=== PATIENT | female | born 1945 | race African-American/Black ===

== ENCOUNTER 2017-10-25 09:08 | Inpatient (IN) | payer OTHER ==
--- NOTE | 2017-10-25 07:53 | HP ---
Satellite [facility] - Chief Complaint Chief Complaint: left knee pain - Past Medical History Allergies/Adverse Reactions: Allergies Allergy/AdvReac Type Severity Reaction Status Date / Time No Known Allergies Allergy Verified 10/13/17 18:02 - Current Medications Current Medications: Home Medications Medication Instructions Recorded Bimatoprost [Lumigan] 1 drop OU BID 10/13/17 Brinzolamide/Brimonidine Tart 8 ml OD DAILY 10/13/17 [Simbrinza 1%-0.2% Eye Drops] Calcium Acetate [Phoslo -] 667 mg PO TIDCM 10/13/17 Cinacalcet HCl [Sensipar] 60 mg PO DAILY 10/13/17 Levothyroxine [Synthroid -] 50 mcg PO DAILY 10/13/17 Metoprolol Succinate [Toprol Xl] 50 mg PO DAILY 10/13/17 Oxycodone HCl/Acetaminophen 1 each PO DAILY 10/13/17 [Oxycodone-Acetaminophen 5-325] Paroxetine HCl [Paxil -] 20 mg PO DAILY 10/13/17 Simvastatin [Zocor -] 40 mg PO HS 10/13/17 Sitagliptin Phosphate [Januvia] 25 mg PO DAILY 10/13/17 Telmisartan [Micardis] 40 mg PO DAILY 10/13/17 Satellite Physical Exam - Physical Examination General Appearance: Well Nourished, Well Developed, Alert & Oriented x3 ENT: Clear Lung: Normal air movement Heart: Regular rate & rhythm Extremities: Other (left knee- + swelling, + ttp, decr rom, nvi xrays show grade 4 tricompartmental djd) Neurological: Intact, Alert, Oriented Satellite Impression/Plan - Impression/Plan Impression: left knee djd Operative Procedure: left rodney tkr Date to be Performed: 10/25/17
[2017-10-25] MEDS ORDERED: CELECOXIB 200 MG CAPSULE PO ONE (09:27)
[2017-10-25] MEDS ORDERED: GABAPENTIN 300 MG CAPSULE (FP) PO ONE (09:27)
[2017-10-25] MEDS ORDERED: oxyCODONE HCL 10 MG SUSTAINED ACTING TABLET PO ONE (09:27)
[2017-10-25] MEDS ORDERED: CEFAZOLIN 1 GM/D5W 1 GM/50 ML BAG IVPB ONE (09:27)
[2017-10-25] MEDS ORDERED: TRANEXAMIC ACID 1000 MG/10 ML VIAL IVPUSH ONE (09:27)
[2017-10-25] MEDS ORDERED: PROPOFOL 20 ML ONE ×2 (10:07→11:34)
[2017-10-25] MEDS ORDERED: VANCOMYCIN 1,000 MG VIAL (RESTRICTED TO ID ONLY) ONE (10:09)
[2017-10-25] MEDS ORDERED: ceFAZolin SODIUM 1 GM VIAL ONE (10:09)
[2017-10-25] MEDS ORDERED: BUPIVACAINE LIPOSOME/PF (EXPAREL) 266 MG/20 ML VIAL ONE (10:24)
[2017-10-25] MEDS ORDERED: MIDAZOLAM HCL 2 MG/2 ML SINGLE DOSE VIAL ONE (10:24)
[2017-10-25] MEDS ORDERED: DEXAMETHASONE SOD PHOSPHATE/PF 10 MG/ML SDV ONE (10:24)
[2017-10-25] MEDS ORDERED: SODIUM CHLORIDE 0.9% P/F 10 ML VIAL IJ ONE (10:25)
[2017-10-25] MEDS ORDERED: BUPIVACAINE HCL/PF (5 MG/ML) 30 ML VIAL IJ ONE (10:25)
[2017-10-25] MEDS ORDERED: BUPIVACAINE HCL/PF 2.5 MG/ML - 30 ML VIAL IJ ONE (10:25)
[2017-10-25] MEDS ORDERED: LIDOCAINE HCL/PF 2% SDV 5ML VIAL ONE ×2 (11:13→11:38)
[2017-10-25] MEDS ORDERED: SUCCINYLCHOLINE CHLORIDE 200 MG/10 ML VIAL ONE (11:34)
[2017-10-25] MEDS ORDERED: BUPIVACAINE HCL/PF 0.5% (5MG/ML) 10 ML VIAL ONE (11:37)
[2017-10-25] MEDS ORDERED: ROCURONIUM BROMIDE 50 MG/5 ML VIAL ONE (11:49)
[2017-10-25] MEDS ORDERED: ePHEDrine SULFATE 50 MG/1 ML AMPULE ONE ×2 (12:03→13:26)
[2017-10-25] MEDS ORDERED: VANCOMYCIN 1,000 MG VIAL (RESTRICTED TO ID ONLY) IVPB ONE (12:43)
[2017-10-25] MEDS ORDERED: NEOSTIGMINE METHYLSULFATE 0.5 MG/ML - 10 ML MDV ONE (13:15)
[2017-10-25] MEDS ORDERED: GLYCOPYRROLATE 0.2 MG/1 ML VIAL ONE (13:16)
[2017-10-25] MEDS ORDERED: MAG HYDROX/AL HYDROX/SIMETH 30 ML UNIT-DOSE CUP PO PRN (13:24)
[2017-10-25] MEDS ORDERED: MAGNESIUM HYDROX 2400MG/30ML ORAL SUSPENSION 30 ML CUP PO PRN (13:24)
[2017-10-25] MEDS ORDERED: ONDANSETRON 4 MG/2 ML VIAL IVPUSH PRN ×2 (13:24→13:37)
--- NOTE | 2017-10-25 13:27 | OP ---
Operative Note - Note: Operative Date: 10/25/17 (roni) Pre-Operative Diagnosis: left knee djd Operation: left rodney tkr Post-Operative Diagnosis: Same as Pre-op Surgeon: Alex Young Judicial Reporter: Willian Cardona Anesthesiologist/WET PAN OPERATOR: Benigno Gay Anesthesia: General, Local Specimens Removed: bone fragments Estimated Blood Loss (mls): 100 Operative Report Dictated: Yes
[2017-10-25] MEDS ORDERED: LACTATED RINGERS SOLUTION 1,000 ML IV SCH (13:30)
[2017-10-25] MEDS ORDERED: ACETAMINOPHEN 325 MG TABLET (FP) PO SCH (13:45)
[2017-10-25] MEDS ORDERED: SODIUM CHLORIDE 0.9% 500 ML INFUS.BAG IV ONE (13:45)
--- NOTE | 2017-10-25 13:59 | SPEC ---
DATE OF OPERATION: 10/25/2017 PREOPERATIVE DIAGNOSIS: Degenerative joint disease, left knee. POSTOPERATIVE DIAGNOSIS: Degenerative joint disease, left knee. PROCEDURE: Left total knee replacement with robotic-assisted navigation (Makoplasty). SURGICAL ATTENDING: Alex Young M.D. COUNTY MANAGER: Josey Gardiner ANESTHESIA: Regional and general. CLOSURE: A cemented Triathlon knee system with a 3 femur, 4 tibia, 11 polyethylene, a 32 patella, number 1 Vicryl fascia, 0 and 2-0 subcutaneous, 3-0 Monocryl subcuticular with skin glue for skin, 4-0 undyed Vicryl for pin sites. ESTIMATED BLOOD LOSS: Less than 100 mL. COMPLICATIONS: None. CONDITION: To recovery room in stable condition. DESCRIPTION OF OPERATIVE PROCEDURE: Patient was taken to the operating room on October 25, 2017. Regional and general anesthesia was administered by the anesthesiologist. IV Kefzol and TXA were administered by the anesthesiologist. Well-padded pneumatic tourniquet was placed on the proximal thigh. The left lower extremity was prepped and draped in the usual sterile fashion. The leg was exsanguinated with an Esmarch bandage, and tourniquet was inflated to 275 mmHg. A 12 to 15-cm longitudinal midline incision was incised while centered over the patella. The dissection was carried down to the level of the extensor mechanism with sufficient flaps made to adequately perform the procedure. A medial parapatellar arthrotomy was then performed. We made a cuff of tissue on the patella for later closure. The patella was inverted, the knee was flexed up. The fat pad was excised. The subperiosteal dissection was on the anteromedial proximal tibia around towards the direction of the MCL. The ACL and the PCL were transected and debrided. The meniscal remnants of the medial and lateral meniscus were debrided and removed. This allowed the knee to be able to "be brought forward." The checkpoints were malleted into the tibia and into the femur. Two threaded pins were drilled anteroposteriorly proximal to the knee through the previous incision, through the anterior cortex, then just engaging the posterior cortex. To these pins was assembled the femoral navigation array. One handbreadth below the tibial tubercle, 2 stab incisions were used to drill 2 threaded pins in parallel fashion into the tibia, again through the anterior cortex and just engaging the posterior cortex. To these pins was fastened the tibial arrays. The knee was then registered with the navigation device with center of rotation of the hip, medial and lateral malleoli, both checkpoints, and multiple points on both the femur and the tibia to ensure excellent registration. The navigation device was directed off the "top of the bubbles" on both the femur and the tibia. The navigation passed within less than 0.5 mm to plan. The knee was then thoroughly inspected to remove all osteophytes both medially, laterally, and on the femur and the tibia, and whatever osteophytes were available for dissection. The knee was then taken to extension and to flexion, and stressed in both varus and valgus to assess flexion gaps. The virtual position of the components on the navigation device were then manipulated to optimize the position and to ensure equal gaps in both flexion and extension, and both medially and laterally. The robot was then brought into the field and was registered. The cuts were then made both on the femur and on the tibia as to plan. All osteophytes posteriorly were then removed as well. The gaps were then measured again in flexion and extension to be equal in both flexion and extension and medial and laterally. The femoral notch was then made, as we were doing a posterior stabilizing component, with the appropriate sized box. Trial reduction of the femur achieved excellent [id number] fit. A tibial baseplate of appropriate polyethylene thickness was "floated in the knee." It was ensured to be in the excellent position by navigation devices and was pinned in place. The knee was taken through a range of motion, and found to have excellent stability throughout flexion and extension. The patella was calibrated for thickness and osteotomized down to the appropriate level. The appropriate lollipop was used to drill the lug holes in the patella and the trial button was applied. The knee was taken through a range of motion and found to have excellent tracking of the patella, and patella from full extension to full flexion. Trial components were removed, the keel was punched and drilled, and a sclerotic bone on the tibia was drilled to help with cement interdigitation. The knee was thoroughly irrigated with the pulse antibiotic senior game developer. The real components were then cemented in using monitored arrangement cement techniques with antibiotic cement, and pressurization and extension. After the cement was hardened, the knee was thoroughly inspected to remove any extra cement. The real polyethylene component was then clipped into place. Range of motion, stability, and tracking were as described earlier. The checkpoints and the pins were removed. The knee was thoroughly irrigated with antibiotic irrigation. Vancomycin powder was placed into the knee for antibiotic prophylaxis. The medial parapatellar arthrotomy was then closed using number 1 Vicryl interrupted suture. After closure of the deep layer, the knee was taken through a range of motion, and found to have excellent stability of the patella with no dislocation and no undue tension on the repair. The subcutaneous was pulse antibiotic irrigated, and was then closed with 2-0 Vicryl, 3-0 Monocryl subcuticular with the skin glue for the skin. The distal tibial pin site was irrigated thoroughly as well and then closed with 4-0 undyed Vicryl. A sterile Aquacel dressing was applied, followed by a Stewart dressing. Tourniquet was deflated. Total tourniquet time was approximately 75 minutes. No complications. Patient was awakened from anesthesia and transferred to recovery room in stable condition. Postoperative x-rays revealed excellent position of the components. Tino [id number]
[2017-10-25] MEDS: oxyCODONE HCL 5 MG TABLET PO PRN ×2 (14:30→18:39)
[2017-10-25] MEDS ORDERED: oxyCODONE HCL 5 MG TABLET ONE (14:32)
[2017-10-25] MEDS: INSULIN SLIDING SCALE (NOVOLOG) 1 VIAL SQ SCH (18:36)
[2017-10-25] MEDS: CEFAZOLIN 2 GM/D5W 2 GM/50 ML ML IVPB SCH (20:47)
[2017-10-25] MEDS: ATORVASTATIN CA 20 MG TABLET (FP) PO SCH (21:47)
[2017-10-25] MEDS: SENNOSIDES/DOCUSATE COMBO (SENNA PLUS) TABLET (UD) PO SCH (21:47)
[2017-10-25] MEDS: oxyCODONE HCL 10 MG SUSTAINED ACTING TABLET PO SCH (21:47)
[2017-10-25] MEDS ORDERED: PATIENT'S OWN MEDICATION (NON-FORMULARY) (Bimatoprost [Lumigan] 1 DROP) OU SCH (22:00)
[2017-10-26] MEDS: CEFAZOLIN 2 GM/D5W 2 GM/50 ML ML IVPB SCH (04:00)
[2017-10-26] MEDS: ACETAMINOPHEN 325 MG TABLET (FP) PO SCH ×4 (04:07→20:54)
[2017-10-26] MEDS: LEVOTHYROXINE NA 50 MCG TABLET (FP) PO SCH (06:23)
--- NOTE | 2017-10-26 09:36 | PN ---
Progress Note (short form) - Note Progress Note: Ortho Pt seen and examined s/p left rodney tkr pod #1- hypotensive Selected Entries 10/26/ 06:00 Temperature 97.9 F Respiratory 18 Rate Blood Pressure 89/61 dressing c/d/i, calf soft, nt rom 0-40, nvi cbc pending a/p incr fluids hold pain meds recheck BP PT dvt ppx d/c planning
[2017-10-26] MEDS: MULTIVITAMINS (DAILY MVI) TABLET (FP) PO SCH (09:54)
[2017-10-26] MEDS: SENNOSIDES/DOCUSATE COMBO (SENNA PLUS) TABLET (UD) PO SCH ×2 (09:54→21:38)
[2017-10-26] MEDS: PARoxetine HCL 20 MG TABLET (FP) PO SCH (09:55)
[2017-10-26] MEDS: oxyCODONE HCL 10 MG SUSTAINED ACTING TABLET PO SCH ×2 (09:55→21:37)
[2017-10-26] MEDS: ASPIRIN 325 MG TABLET PO SCH (09:56)
[2017-10-26] MEDS ORDERED: PATIENT'S OWN MEDICATION (NON-FORMULARY) (Brinzolamide/Brimonidine Tart [Simbrinza 1%-0.2% OD SCH (10:00)
[2017-10-26] MEDS: PANTOPRAZOLE 40 MG TABLET (FP) PO SCH (10:00)
[2017-10-26] MEDS: sitaGLIPtin PHOSPHATE 25 MG TABLET (FP) PO SCH (10:00)
[2017-10-26] MEDS: CINACALCET HCL 30 MG TAB (FP) PO SCH (10:20)
[2017-10-26] MEDS: CALCIUM ACETATE 667 MG CAPSULE (FP) PO SCH ×3 (10:20→17:00)
--- NOTE | 2017-10-26 11:11 | PN ---
Progress Note (short form) - Note Progress Note: 72F POD1 s/p LTKR under spinal anesthetic with peripheral nerve blocks for post operative pain control. Pt states that pain is well controlled. Reports no anesthetic complications. Low BP. Pt asymptomatic. Motor and sensory function intact in bilateral lower extremities. Continue increased IVF, and holding pain meds. Will continue to follow.
--- NOTE | 2017-10-26 11:22 | CONSULT ---
Consultation: REQUESTING PROVIDER: Dr Young CONSULT REQUEST: We have been asked to medically evaluate this patient for medical management HISTORY OF PRESENT ILLNESS: patient is a 72-year-old female, with a past medical history of DM,end-stage renal disease (hemodialysis Tuesday), angina, hypertension, and osteoarthritis. Patient is S/P left knee replacement Dr. Young postoperative day one spinal anesthesia. REVIEW OF SYSTEMS: CONSTITUTIONAL: Absent: fever, chills, diaphoresis, generalized weakness, malaise, loss of appetite, weight change HEENT: Absent: rhinorrhea, nasal congestion, throat pain, throat swelling, difficulty swallowing, mouth swelling, ear pain, eye pain, visual changes CARDIOVASCULAR: Absent: chest pain, syncope, palpitations, irregular heart rate, lightheadedness , peripheral edema RESPIRATORY: Absent: cough, shortness of breath, dyspnea with exertion, orthopnea, wheezing, stridor, hemoptysis GASTROINTESTINAL: Absent: abdominal pain, abdominal distension, nausea, vomiting, diarrhea, constipation, melena, hematochezia GENITOURINARY: Absent: dysuria, frequency, urgency, hesitancy, hematuria, flank pain, genital pain MUSCULOSKELETAL: present: left knee pain Absent: myalgia, arthralgia, joint swelling, back pain, neck pain SKIN: Absent: rash, itching, pallor HEMATOLOGIC/IMMUNOLOGIC: Absent: easy bleeding, easy bruising, lymphadenopathy, frequent infections ENDOCRINE: Absent: unexplained weight gain, unexplained weight loss, heat intolerance, cold intolerance NEUROLOGIC: Absent: headache, focal weakness or paresthesias, dizziness, unsteady gait, seizure, mental status changes, bladder or bowel incontinence PSYCHIATRIC: Absent: anxiety, depression, suicidal or homicidal ideation, hallucinations. PHYSICAL EXAMINATION Vital Signs - 24 hr 10/25/17 10/25/17 10/25/17 13:33 13:40 13:45 Temperature 98.1 F Pulse Rate 84 83 80 Respiratory 16 18 18 Rate Blood Pressure 91/61 90/59 105/67 O2 Sat by Pulse 96 97 96 Oximetry (%) 10/25/17 10/25/17 10/25/17 13:50 14:05 14:20 Temperature Pulse Rate 78 70 72 Respiratory 18 20 20 Rate Blood Pressure 100/54 91/61 96/60 O2 Sat by Pulse 96 96 97 Oximetry (%) 10/25/17 10/25/17 10/25/17 14:35 21:00 22:07 Temperature Pulse Rate 58 L 58 L 84 Respiratory 20 20 18 Rate Blood Pressure 94/64 94/64 80/55 O2 Sat by Pulse 97 97 Oximetry (%) 10/26/17 10/26/17 10/26/17 00:03 01:08 02:00 Temperature Pulse Rate 74 74 74 Respiratory 18 18 18 Rate Blood Pressure 74/35 64/54 64/40 O2 Sat by Pulse 100 Oximetry (%) 10/26/17 10/26/17 10/26/17 03:00 06:00 08:30 Temperature 97.9 F Pulse Rate 68 84 Respiratory 18 18 Rate Blood Pressure 60/40 89/61 78/64 O2 Sat by Pulse 100 Oximetry (%) 10/26/17 10:02 Temperature Pulse Rate Respiratory Rate Blood Pressure 86/52 O2 Sat by Pulse Oximetry (%) GENERAL: Awake, alert, and fully oriented, in no acute distress. HEAD: Normal with no signs of trauma. EYES: Pupils equal, round and reactive to light, extraocular movements intact, sclera anicteric, conjunctiva clear. No lid lag. EARS, NOSE, THROAT: Ears normal, nares patent, oropharynx clear without exudates. Moist mucous membranes. NECK: Normal range of motion, supple without lymphadenopathy, JVD, or masses. LUNGS: Breath sounds equal, clear to auscultation bilaterally. No wheezes, and no crackles. No accessory muscle use. HEART: Regular rate and rhythm, normal S1 and S2 without murmur, rub or gallop. ABDOMEN: Soft, nontender, not distended, normoactive bowel sounds, no guarding, no rebound, no masses. No hepatomegaly or splenomegaly. MUSCULOSKELETAL: Normal range of motion at all joints. No bony deformities or tenderness. No CVA tenderness. UPPER EXTREMITIES: 2+ pulses, warm, well-perfused. No cyanosis. No clubbing. Cap refill <2 seconds. No peripheral edema. LOWER EXTREMITIES: 2+ pulses, warm, well-perfused. No calf tenderness. No peripheral edema. left lower extremity: aquasol dressing saturated, dressing changed, scant sanginous drainage noted to distal wound, no erythema noted, wound well approximated. Less than 3 second capillary refill +3 pedal pulse patient is able to move the digits of the foot without any difficulty. NEUROLOGICAL: Cranial nerves II-XII intact. Normal speech. Normal gait. PSYCHIATRIC: Cooperative. Good eye contact. Appropriate mood and affect. SKIN: Warm, dry, normal turgor, no rashes or lesions noted. Laboratory Results - last 24 hr 10/25/17 10/25/17 10/25/17 13:42 18:36 22:09 POC Glucometer 181 287 299 10/26/17 05:40 POC Glucometer 124 Active Medications Generic Name Dose Route Start Last Admin Trade Name Freq PRN Reason Stop Dose Admin Acetaminophen 650 mg 10/25/17 20:30 10/26/17 04:07 Tylenol - PO 10/28/17 15:00 650 mg Q6H LEE Administration Al Hydroxide/Mg Hydroxide 30 ml 10/25/17 13:24 Mylanta Oral Suspension - PO Q4H PRN DYSPEPSIA Aspirin 325 mg 10/26/17 08:00 10/26/17 09:56 Asa - PO 325 mg DAILY@0800 LEE Administration Atorvastatin Calcium 20 mg 10/25/17 22:00 10/25/17 21:47 Lipitor - PO 20 mg HS LEE Administration Calcium Acetate 667 mg 10/25/17 17:30 10/26/17 10:20 Phoslo - PO 667 mg TIDCM LEE Administration Cinacalcet 60 mg 10/26/17 10:00 10/26/17 10:20 Sensipar - PO 60 mg DAILY LEE Administration Fentanyl 50 mcg 10/25/17 13:37 10/25/17 14:05 Sublimaze Injection - IVPUSH 50 mcg [id number] PRN Administration PAIN-PACU ORDER X 4 DOSES ONLY Insulin Aspart 1 vial 10/25/17 16:30 10/25/17 18:36 Novolog Vial Sliding Scale - SQ 8 unit ACHS LEE Administration Protocol Levothyroxine Sodium 50 mcg 10/26/17 07:00 10/26/17 06:23 Synthroid - PO 50 mcg DAILY@0700 [facility] Administration Magnesium Hydroxide 30 ml 10/25/17 13:24 Milk Of Magnesia - PO PRN PRN CONSTIPATION Metoprolol Succinate 50 mg 10/26/17 10:00 Toprol Xl - PO DAILY LEE Multivitamins/Minerals/Vitamin C 1 tab 10/26/17 10:00 10/26/17 09:54 Tab-A-Vit - PO 1 tab DAILY LEE Administration Non-Formulary Medication 1 drop 10/25/17 22:00 Bimatoprost [Lumigan] OU BID LEE Non-Formulary Medication 8 ml 10/26/17 10:00 Brinzolamide/Brimonidine Tart [Simbrinza 1%-0.2% Eye Drops] OD DAILY LEE Ondansetron HCl 4 mg 10/25/17 13:24 Zofran Injection IVPUSH Q6H PRN NAUSEA Ondansetron HCl 4 mg 10/25/17 13:37 10/25/17 13:44 Zofran Injection IVPUSH 4 mg Q6H PRN Administration NAUSEA AND/OR VOMITING Oxycodone HCl 5 mg 10/25/17 13:37 10/25/17 14:30 Roxicodone - PO 5 mg Q3H PRN Administration PAIN LEVEL 1-5 Oxycodone HCl 10 mg 10/25/17 13:37 10/25/17 18:39 Roxicodone - PO 10 mg Q3H PRN Administration PAIN LEVEL 6-10 Oxycodone HCl 10 mg 10/25/17 22:00 10/26/17 09:55 Oxycontin - PO 10/28/17 13:37 10 mg BID LEE Administration Pantoprazole Sodium 40 mg 10/26/17 10:00 Protonix - PO DAILY LEE Paroxetine HCl 20 mg 10/26/17 10:00 10/26/17 09:55 Paxil - PO 20 mg DAILY LEE Administration Senna/Docusate Sodium 2 tablet 10/25/17 22:00 10/26/17 09:54 Pericolace - PO 2 tablet BID LEE Administration Sitagliptin Phosphate 25 mg 10/26/17 10:00 Januvia - PO ACBK LEE Valsartan 160 mg 10/26/17 10:00 Diovan - PO DAILY LEE ASSESSMENT/PLAN: 1) ortho S/P left total knee replacement, POD #1 - Patient with narcotic pain medication in setting of labile blood pressure - Physical therapy as per the orthopedist - Discussed with orthopedist Dr. Young, Aquasol dressing removed and replaced with Aquasol dressing, monitor drainage, advise cbc 2) nephrology End-stage renal disease - Continue hemodialysis as scheduled - strict intake and output - Will require outpatient follow-up with purifying plant operator Dr. Anderson 3) cardiovascular Hypertension - Labile blood pressure hold Diovan - advise blood pressure monitoring every 4 hours 4) Endo Diabetes - Continue Januvia and fingersticks before meals and at bedtime with regular insulin coverage as per sliding scale Hypothyroidism - Continue levothyroxine Dispo: We will continue to follow the patient. Thank you for this consultative opportunity. Visit type - Emergency Visit Emergency Visit: No - New Patient This patient is new to me today: No - Critical Care Critical Care patient: No
[2017-10-26] MEDS: VALSARTAN 160 MG TABLET (UD) PO SCH (12:40)
[2017-10-26] MEDS ORDERED: PT OWN MED DRAWER 7, Y5N ONE (12:59)
[2017-10-26] MEDS: INSULIN SLIDING SCALE (NOVOLOG) 1 VIAL SQ SCH ×4 (15:51→23:03)
[2017-10-26] MEDS: oxyCODONE HCL 5 MG TABLET PO PRN (16:01)
[2017-10-26] MEDS: ATORVASTATIN CA 20 MG TABLET (FP) PO SCH (21:37)
[2017-10-27] MEDS: ACETAMINOPHEN 325 MG TABLET (FP) PO SCH ×6 (03:23→22:51)
[2017-10-27] MEDS: INSULIN SLIDING SCALE (NOVOLOG) 1 VIAL SQ SCH ×4 (06:46→22:42)
[2017-10-27] MEDS ORDERED: PT OWN MED DRAWER 7, Y5N ONE (07:13)
[2017-10-27] MEDS: LEVOTHYROXINE NA 50 MCG TABLET (FP) PO SCH (07:15)
[2017-10-27] MEDS: sitaGLIPtin PHOSPHATE 25 MG TABLET (FP) PO SCH (07:15)
[2017-10-27 07:41] LABS: HEMATOCRIT 23.8 % (32.4-45.2); HEMOGLOBIN 7.8 GM/dl (10.7-15.3); MCH 32.3 pg (25.7-33.7); MCHC 32.8 g/dl (32.0-36.0); MEAN CELL VOLUME 98.5 fl (80-96); PLATELET COUNT 201 K/MM3 (134-434); RBC 2.42 M/mm3 (3.60-5.2); RDW 14.1 % (11.6-15.6)
--- NOTE | 2017-10-27 08:31 | PN ---
Progress Note (short form) - Note Progress Note: Ortho Pt seen and examined s/p left rodney tkr pod #2 Selected Entries 10/27/17 06:00 Temperature 98.9 F Pulse Rate 88 Respiratory 18 Rate Blood Pressure 99/68 Laboratory Tests 10/27/17 07:00 WBC 10.0 Hgb 7.8 L Hct 23.8 L Plt Count 201 dressing c/d/i, calf soft, nt rom 0-40, nvi a/p PT dvt ppx pain control d/c for dialysis today then to snf f/u in 7-10 days in the office
--- NOTE | 2017-10-27 08:33 | DS ---
Physical Examination Vital Signs: Vital Signs Temperature 98.9 F 10/27/17 06:00 Pulse Rate 88 10/27/17 06:00 Respiratory Rate 18 10/27/17 06:00 Blood Pressure 99/68 10/27/17 06:00 O2 Sat by Pulse Oximetry (%) 95 10/27/17 06:00 Labs: CBC, BMP 10/27/17 07:00 10/25/17 10:15 Discharge Summary Reason For Visit: OSTEOARTHRITIS Procedures: Principal: s/p left rodney tkr Hospital Course: admitted for elective left rodney tkr, was hypotensive, hospitalist consulted- held BP meds and resolved, stable for d/c for dialysis and then to snf Condition: Good - Instructions Diet, Activity, Other Instructions: Post-op Instructions-Total Hip Replacement Call the office for a follow-up appointment in 1 week - [phone] Aspirin 325mg daily for 6 weeks. Pain medication was sent into your pharmacy. Apply Graduated Compression Stockings (TEDs) to both lower extremities- remove daily for hygiene ONLY Apply Sequential Compression Device (SCDs) to both Lower extremities remove for PT and hygiene ONLY Apply cold packs to affected area for 15 minutes every 2 hours. Physical Therapist will come to your home for the first 5 days. You will be set up with outpatient PT at your first post-operative visit. Patient may ambulate as tolerated-encourage self care (at least every 2-3 hours while awake) with walker or cane Maintain Aquacel (waterproof) dressing to operative wound (will be removed by surgeon at first office visit) Shower with Aquacel dressing in place-if Aquacel integrity compromised, remove and apply dry sterile dressing and notify Orthopedist. DO NOT SHOWER unless Orthopedists approves without Aquacel dressing CONTACT THE OFFICE FOR ANY CHANGE IN YOUR CONDITION (for example-fever greater than 102 degrees, excessive bleeding from operative site, purulent drainage, severe swelling or pain) GO TO THE EMERGENCY ROOM IF THERE IS A MEDICAL EMERGENCY Hip Precautions: * Keep a rolled towel under affected heel while in bed or chair (to keep knee in extension) * Dependent upon approach: * Posterior - do not cross legs; do not sit on low chairs or toilets. * If you have any questions, please do not hesitate to call the office - . Referrals: Alex Young MD [Staff Physician] - Disposition: VNS/HOME HEALTH CARE - Home Medications Comprehensive Discharge Medication List: Ambulatory Orders Bimatoprost [Lumigan] 1 drop OU BID 10/13/17 Brinzolamide/Brimonidine Tart [Simbrinza 1%-0.2% Eye Drops] 8 ml OD DAILY Calcium Acetate [Phoslo -] 667 mg PO TIDCM 10/13/17 Cinacalcet HCl [Sensipar] 60 mg PO DAILY 10/13/17 Levothyroxine [Synthroid -] 50 mcg PO DAILY 10/13/17 Metoprolol Succinate [Toprol Xl] 50 mg PO DAILY 10/13/17 Paroxetine HCl [Paxil -] 20 mg PO DAILY 10/13/17 Simvastatin [Zocor -] 40 mg PO HS 10/13/17 Sitagliptin Phosphate [Januvia] 25 mg PO DAILY 10/13/17 Telmisartan [Micardis] 40 mg PO DAILY 10/13/17 Aspirin [ASA -] 325 mg PO DAILY@0800 tablet 10/25/17 Oxycodone HCl/Acetaminophen [Oxycodone-Acetaminophen 5-325] 1 - 2 each PO Q6H # 50 tablet MDD 6 10/25/17
[2017-10-27] MEDS: oxyCODONE HCL 5 MG TABLET PO PRN ×2 (08:35→15:19)
[2017-10-27] MEDS: CALCIUM ACETATE 667 MG CAPSULE (FP) PO SCH ×4 (10:08→17:45)
[2017-10-27] MEDS: ASPIRIN 325 MG TABLET PO SCH (10:09)
[2017-10-27] MEDS: oxyCODONE HCL 10 MG SUSTAINED ACTING TABLET PO SCH ×2 (10:10→21:03)
[2017-10-27] MEDS: PARoxetine HCL 20 MG TABLET (FP) PO SCH (10:10)
[2017-10-27] MEDS: VALSARTAN 160 MG TABLET (UD) PO SCH (10:10)
[2017-10-27] MEDS: SENNOSIDES/DOCUSATE COMBO (SENNA PLUS) TABLET (UD) PO SCH ×2 (10:11→21:03)
[2017-10-27] MEDS: PANTOPRAZOLE 40 MG TABLET (FP) PO SCH (10:11)
[2017-10-27] MEDS: MULTIVITAMINS (DAILY MVI) TABLET (FP) PO SCH (10:12)
[2017-10-27] MEDS: CINACALCET HCL 30 MG TAB (FP) PO SCH (10:15)
--- NOTE | 2017-10-27 14:40 | PN ---
Physical Exam: SUBJECTIVE: Patient seen and examined, ambulatorywith physical therapy, denies any dizziness, patient reports pain is well controlled Pending discharge today OBJECTIVE: patient is a 72-year-old female, with a past medical history of DM, end-stage renal disease (hemodialysis Tuesday), angina, hypertension, and osteoarthritis. Patient is S/P left knee replacement Dr. Young postoperative day 2 spinal anesthesia. Vital Signs Period Temp Pulse Resp BP Sys/Palacios Pulse Ox Last 24 Hr 98.1 F-98.9 F 83-94 16-18 91-126/47-69 95-98 GENERAL: The patient is awake, alert, and fully oriented, in no acute distress. HEAD: Normal with no signs of trauma. EYES: PERRL, extraocular movements intact, sclera anicteric, conjunctiva clear. No ptosis. ENT: Ears normal, nares patent, oropharynx clear without exudates, moist mucous membranes. NECK: Trachea midline, full range of motion, supple. LUNGS: Breath sounds equal, clear to auscultation bilaterally, no wheezes, no crackles, no accessory muscle use. HEART: Regular rate and rhythm, S1, S2 without murmur, rub or gallop. ABDOMEN: Soft, nontender, nondistended, normoactive bowel sounds, no guarding, no rebound, no hepatosplenomegaly, no masses. EXTREMITIES: 2+ pulses, warm, well-perfused, no edema. left upper extremity AV graft positive thrill and positive bruit RIGHT LOWER EXTREMITY: ressing CVI SCDs/teds less than 3 second capillary refill +3 pedal pulse patient is able to movethe digits of foot without any difficulty NEUROLOGICAL: Cranial nerves II through XII grossly intact. Normal speech, gait not observed. PSYCH: Normal mood, normal affect. SKIN: Warm, dry, normal turgor, no rashes or lesions noted Laboratory Results - last 24 hr 10/26/17 10/26/17 10/27/17 15:50 22:36 06:45 WBC RBC Hgb Hct MCV MCH MCHC RDW Plt Count MPV POC Glucometer 122 234 138 10/27/17 07:00 WBC 10.0 RBC 2.42 L Hgb 7.8 L Hct 23.8 L MCV 98.5 H MCH 32.3 MCHC 32.8 RDW 14.1 Plt Count 201 MPV 8.0 POC Glucometer Active Medications Generic Name Dose Route Start Last Admin Trade Name Freq PRN Reason Stop Dose Admin Acetaminophen 650 mg 10/25/17 20:30 10/27/17 10:34 Tylenol - PO 10/28/17 15:00 Not Given Q6H LEE Al Hydroxide/Mg Hydroxide 30 ml 10/25/17 13:24 Mylanta Oral Suspension - PO Q4H PRN DYSPEPSIA Aspirin 325 mg 10/26/17 08:00 10/27/17 10:09 Asa - PO 325 mg DAILY@0800 [facility] Administration Atorvastatin Calcium 20 mg 10/25/17 22:00 10/26/17 21:37 Lipitor - PO 20 mg HS [facility] Administration Calcium Acetate 667 mg 10/25/17 17:30 10/27/17 12:34 Phoslo - PO 667 mg TIDCM [facility] Administration Cinacalcet 60 mg 10/26/17 10:00 10/27/17 10:15 Sensipar - PO 60 mg DAILY [facility] Administration Fentanyl 50 mcg 10/25/17 13:37 10/25/17 14:05 Sublimaze Injection - IVPUSH 50 mcg [id number] PRN Administration PAIN-PACU ORDER X 4 DOSES ONLY Insulin Aspart 1 vial 10/25/17 16:30 10/27/17 12:34 Novolog Vial Sliding Scale - SQ Not Given ACHS [facility] Protocol Levothyroxine Sodium 50 mcg 10/26/17 07:00 10/27/17 07:15 Synthroid - PO 50 mcg DAILY@0700 [facility] Administration Magnesium Hydroxide 30 ml 10/25/17 13:24 Milk Of Magnesia - PO PRN PRN CONSTIPATION Metoprolol Succinate 50 mg 10/26/17 10:00 10/27/17 11:05 Toprol Xl - PO Not Given DAILY [facility] Multivitamins/Minerals/Vitamin C 1 tab 10/26/17 10:00 10/27/17 10:12 Tab-A-Vit - PO 1 tab DAILY [facility] Administration Non-Formulary Medication 1 drop 10/25/17 22:00 Bimatoprost [Lumigan] OU BID [facility] Non-Formulary Medication 8 ml 10/26/17 10:00 Brinzolamide/Brimonidine Tart [Simbrinza 1%-0.2% Eye Drops] OD DAILY [facility] Ondansetron HCl 4 mg 10/25/17 13:24 Zofran Injection IVPUSH Q6H PRN NAUSEA Ondansetron HCl 4 mg 10/25/17 13:37 10/25/17 13:44 Zofran Injection IVPUSH 4 mg Q6H PRN Administration NAUSEA AND/OR VOMITING Oxycodone HCl 5 mg 10/25/17 13:37 10/27/17 08:35 Roxicodone - PO 5 mg Q3H PRN Administration PAIN LEVEL 1-5 Oxycodone HCl 10 mg 10/25/17 13:37 10/26/17 16:01 Roxicodone - PO 10 mg Q3H PRN Administration PAIN LEVEL 6-10 Oxycodone HCl 10 mg 10/25/17 22:00 10/27/17 10:10 Oxycontin - PO 10/28/17 13:37 10 mg BID LEE Administration Pantoprazole Sodium 40 mg 10/26/17 10:00 10/27/17 10:11 Protonix - PO 40 mg DAILY LEE Administration Paroxetine HCl 20 mg 10/26/17 10:00 10/27/17 10:10 Paxil - PO 20 mg DAILY LEE Administration Senna/Docusate Sodium 2 tablet 10/25/17 22:00 10/27/17 10:11 Pericolace - PO 2 tablet BID LEE Administration Sitagliptin Phosphate 25 mg 10/26/17 10:00 10/27/17 07:15 Januvia - PO 25 mg ACBK LEE Administration Valsartan 160 mg 10/26/17 10:00 10/27/17 10:10 Diovan - PO Not Given DAILY LEE ASSESSMENT/PLAN: 1) ortho S/P left total knee replacement, POD #2 - continue when necessary pain medication - Physical therapy as per the orthopedist - hgb 7.8 stable close monitoring 2) nephrology End-stage renal disease - Continue hemodialysis as scheduled - strict intake and output - Will require outpatient follow-up with case worker Dr. Anderson 3) cardiovascular Hypertension - continue diovan - advise blood pressure monitoring every 4 hours 4) Endo Diabetes - Continue Januvia and fingersticks before meals and at bedtime with regular insulin coverage as per sliding scale Hypothyroidism - Continue levothyroxine Dispo: We will continue to follow the patient. Thank you for this consultative opportunity. Visit type - Emergency Visit Emergency Visit: No - New Patient This patient is new to me today: No - Critical Care Critical Care patient: No - Discharge Referral Referred to [facility] Med P.C.: No
[2017-10-27] MEDS ORDERED: EPOETIN ALFA 2,000 UNIT/1 ML VIAL IVPUSH ONE (18:12)
--- NOTE | 2017-10-27 18:12 | PN ---
Progress Note (short form) - Note Progress Note: RENAL 72 WITH HTN DM ESRD S/P LEFT KNEE REPLACEMENT ON POD2 NEEDS HD BP LOW HOLD DAVIS LEAVE ON METOPROLOL Q HS HOLD FOR SBP UNDER 110 HD TODAY HIPS 20 NR 2.5 HR K2 CA2.5 TARGET 3 KG SEND CHEM PRE HD EPO 20K TRANSFER TO STR IN AM
[2017-10-27] MEDS: ATORVASTATIN CA 20 MG TABLET (FP) PO SCH (21:04)
[2017-10-27] MEDS ORDERED: EPOETIN ALFA 20,000 UNIT/1 ML VIAL IVPUSH ONE (23:00)
[2017-10-28] MEDS: ACETAMINOPHEN 325 MG TABLET (FP) PO SCH ×3 (02:34→14:28)
[2017-10-28] MEDS: LEVOTHYROXINE NA 50 MCG TABLET (FP) PO SCH (06:29)
[2017-10-28] MEDS: sitaGLIPtin PHOSPHATE 25 MG TABLET (FP) PO SCH (06:29)
[2017-10-28] MEDS: INSULIN SLIDING SCALE (NOVOLOG) 1 VIAL SQ SCH ×5 (06:30→21:15)
[2017-10-28] MEDS: CALCIUM ACETATE 667 MG CAPSULE (FP) PO SCH ×4 (08:11→18:43)
[2017-10-28] MEDS: ASPIRIN 325 MG TABLET PO SCH (08:53)
[2017-10-28] MEDS: SENNOSIDES/DOCUSATE COMBO (SENNA PLUS) TABLET (UD) PO SCH ×2 (10:53→21:15)
[2017-10-28] MEDS: CINACALCET HCL 30 MG TAB (FP) PO SCH (10:53)
[2017-10-28] MEDS: oxyCODONE HCL 10 MG SUSTAINED ACTING TABLET PO SCH (10:53)
[2017-10-28] MEDS: PARoxetine HCL 20 MG TABLET (FP) PO SCH (10:54)
[2017-10-28] MEDS: MULTIVITAMINS (DAILY MVI) TABLET (FP) PO SCH (10:54)
[2017-10-28] MEDS: PANTOPRAZOLE 40 MG TABLET (FP) PO SCH (10:54)
[2017-10-28] MEDS: VALSARTAN 160 MG TABLET (UD) PO SCH (10:54)
[2017-10-28] MEDS: oxyCODONE HCL 5 MG TABLET PO PRN (12:16)
--- NOTE | 2017-10-28 14:48 | PN ---
Progress Note (short form) - Note Progress Note: AVSS COMFORTABLE BANDAGES DRY AND INTACT CALF SOFT AND NT NVI PROM 0-100 + STRAIGHT LEG RAISE ABILITY IMP: DOING WELL PLAN: OOB, PT, DC TO SNF WITH DIALYSIS
--- NOTE | 2017-10-28 17:13 | PATH ---
Surgical Pathology Report Patient Name: VANESSA JAMA Med. Rec. #: [id number] /Age/Gender: 1945 (Age: 72) / F Account: [id number] Location: [address] [place] [address]/[facility] Taken: 10/25/2017 Received: 10/25/2017 Reported: 10/28/2017 Physicians: Alex Young M.D. Specimen(s) Received LEFT KNEE BONES Clinical History Left knee osteoarthritis Final Diagnosis BONE, KNEE, LEFT, TOTAL KNEE REPLACEMENT MAKOPLASTY: BONE WITH DEGENERATIVE JOINT DISEASE, DENSE FIBROCONNECTIVE TISSUE, FIBROADIPOSE TISSUE, AND REACTIVE SYNOVIUM. Electronically Signed Rosenda Evans M.D. Gross Description Received in formalin labeled "left knee bones" is a 9 x 11 x 2 cm aggregate of multiple portions of bone and soft tissue. The tibial plateau measures 7 x 6 x 2 cm. There are focal areas of eburnation identified. The articular surface is pearson-yellow and diffusely granular. The underlying trabecular bone is yellow and hard. Choir Accompanist sections submitted in one cassette, following decalcification. JERED/10/26/2017 purvi/10/26/2017
[2017-10-28] MEDS ORDERED: PT OWN MED DRAWER 7, Y5N ONE (18:39)
[2017-10-28] MEDS ORDERED: INSULIN (NOVOLOG) ASPART 100 UNITS/ML 10ML VIAL ONE ×2 (18:39→21:06)
[2017-10-28] MEDS ORDERED: oxyCODONE HCL 5 MG TABLET PO PRN (18:43)
[2017-10-28] MEDS: ATORVASTATIN CA 20 MG TABLET (FP) PO SCH (21:14)
[2017-10-29] MEDS: INSULIN SLIDING SCALE (NOVOLOG) 1 VIAL SQ SCH ×4 (06:15→21:34)
[2017-10-29] MEDS: sitaGLIPtin PHOSPHATE 25 MG TABLET (FP) PO SCH (06:29)
[2017-10-29] MEDS: LEVOTHYROXINE NA 50 MCG TABLET (FP) PO SCH (06:29)
[2017-10-29 08:07] LABS: HBSAG SCREEN Negative (Negative); HEP B CORE AB, TOT Negative (Negative)
[2017-10-29] MEDS: CALCIUM ACETATE 667 MG CAPSULE (FP) PO SCH ×3 (09:20→17:37)
[2017-10-29] MEDS: ASPIRIN 325 MG TABLET PO SCH (09:21)
--- NOTE | 2017-10-29 10:18 | PN ---
Progress Note (short form) - Note Progress Note: RENAL 72 WITH HTN DM ESRD S/P LEFT KNEE REPLACEMENT ON POD4 HD TODAY HIPS 20 NR 2.5 HR K2 CA2.5 TARGET 1.5 KG DC ON METOPROLOL 50 Q HS HOLD OFF ON MICARDIS OR DIOVAN TILL BP COMES UP AND SURELY HOLD PRE HD ON ASA 325 DAILY FOR DVT PROPHYLAXIS CONFIRMED WITH DR SANCHEZ
[2017-10-29 10:25] LABS: HEMATOCRIT 20.1 % (32.4-45.2); MCH 33.4 pg (25.7-33.7); MCHC 33.5 g/dl (32.0-36.0); MEAN CELL VOLUME 99.6 fl (80-96); MEAN PLT VOLUME 8.3 fl (7.5-11.1); PLATELET COUNT 197 K/MM3 (134-434); RBC 2.01 M/mm3 (3.60-5.2); RDW 14.5 % (11.6-15.6); WHITE BLOOD COUNT 9.2 K/mm3 (4.0-10.0)
[2017-10-29 10:29] LABS: HEMOGLOBIN 6.7 GM/dL (10.7-15.3)
[2017-10-29 10:43] LABS: ALBUMIN 2.6 g/dl (3.4-5.0); ANION GAP 10 (8-16); BILIRUBIN,TOTAL 0.4 mg/dL (0.2-1.0); BLOOD UREA NITROGEN 45 mg/dL (7-18); CALCIUM 9.2 mg/dL (8.5-10.1); CHLORIDE 96 mmol/L (98-107); CO2 28 mmol/L (21-32); GLUCOSE,RANDOM 101 mg/dL (74-106); POTASSIUM 4.5 mmol/L (3.5-5.1); SGOT/AST 16 U/L (15-37); SGPT/ALT 7 U/L (12-78); SODIUM 134 mmol/L (136-145); TOT PROT 6.5 g/dl (6.4-8.2)
[2017-10-29 10:44] LABS: ALK PHOS 66 U/L (45-117)
[2017-10-29] MEDS ORDERED: EPOETIN ALFA 20,000 UNIT/1 ML VIAL IVPUSH ONE (11:00)
[2017-10-29 11:02] LABS: CREATININE 9.9 mg/dL (0.55-1.02)
[2017-10-29] MEDS ORDERED: IRON SUCROSE INJECTION 100 MG in SODIUM CHLORIDE 100 ML IVPB ONE (11:30)
[2017-10-29] MEDS: CINACALCET HCL 30 MG TAB (FP) PO SCH (12:41)
[2017-10-29] MEDS: MULTIVITAMINS (DAILY MVI) TABLET (FP) PO SCH (12:42)
[2017-10-29] MEDS: PARoxetine HCL 20 MG TABLET (FP) PO SCH (12:42)
[2017-10-29] MEDS: SENNOSIDES/DOCUSATE COMBO (SENNA PLUS) TABLET (UD) PO SCH ×2 (12:42→21:34)
[2017-10-29] MEDS: PANTOPRAZOLE 40 MG TABLET (FP) PO SCH (12:42)
[2017-10-29] MEDS: oxyCODONE HCL 5 MG TABLET PO PRN (12:53)
[2017-10-29] MEDS: ATORVASTATIN CA 20 MG TABLET (FP) PO SCH (21:34)
[2017-10-30] MEDS: sitaGLIPtin PHOSPHATE 25 MG TABLET (FP) PO SCH (07:01)
[2017-10-30] MEDS: LEVOTHYROXINE NA 50 MCG TABLET (FP) PO SCH (07:01)
[2017-10-30] MEDS: INSULIN SLIDING SCALE (NOVOLOG) 1 VIAL SQ SCH ×4 (07:02→21:16)
[2017-10-30] MEDS: CALCIUM ACETATE 667 MG CAPSULE (FP) PO SCH ×3 (08:44→18:13)
[2017-10-30] MEDS: ASPIRIN 325 MG TABLET PO SCH (08:44)
[2017-10-30] MEDS: PARoxetine HCL 20 MG TABLET (FP) PO SCH (10:17)
[2017-10-30] MEDS: PANTOPRAZOLE 40 MG TABLET (FP) PO SCH (10:17)
[2017-10-30] MEDS: CINACALCET HCL 30 MG TAB (FP) PO SCH (10:17)
[2017-10-30] MEDS: SENNOSIDES/DOCUSATE COMBO (SENNA PLUS) TABLET (UD) PO SCH ×3 (10:17→21:17)
[2017-10-30] MEDS: MULTIVITAMINS (DAILY MVI) TABLET (FP) PO SCH (10:18)
[2017-10-30 13:43] LABS: HEMATOCRIT 20.3 % (32.4-45.2); MEAN CELL VOLUME 100.1 fl (80-96); MEAN PLT VOLUME 8.2 fl (7.5-11.1); PLATELET COUNT 205 K/MM3 (134-434); RBC 2.03 M/mm3 (3.60-5.2); RDW 14.4 % (11.6-15.6); WHITE BLOOD COUNT 7.1 K/mm3 (4.0-10.0)
[2017-10-30 13:47] LABS: HEMOGLOBIN 6.7 GM/dL (10.7-15.3)
[2017-10-30 14:15] LABS: ANION GAP 7 (8-16); BLOOD UREA NITROGEN 32 mg/dL (7-18); CALCIUM 9.5 mg/dL (8.5-10.1); CHLORIDE 98 mmol/L (98-107); CO2 31 mmol/L (21-32); GLUCOSE,RANDOM 114 mg/dL (74-106); POTASSIUM 4.1 mmol/L (3.5-5.1); SODIUM 136 mmol/L (136-145)
[2017-10-30 14:19] LABS: CREATININE 8.1 mg/dL (0.55-1.02)
--- NOTE | 2017-10-30 20:02 | PN ---
Progress Note (short form) - Note Progress Note: Paged by RN due to pt having lip biting and pt stating "i feel like I'm having a stroke." PMD notified and asked for inhouse evaluation Pt here now for dialysis and anemia currently. Pt is in normal mentation, but she feels funny and had some lip biting that got her nervous. No episodes of incontinence or reported tonic-clonic movements. No staring blankly. Pt is currently alert to spontaneous stimuli and oriented x3. She also reports her vision is poor chronically. Neuro exam: CN II-XII intact. Tongue protrusion midline with uvula elevation midline. EOMI, BRANT. Sensation intact throughout all facial, LE, and UE distributions. Strength 5/5 intact through shoulder shrug, arm flexion and extension, plantar and dorsal flexion. Could not compare LE knee flexion due to recent knee replacement. Babinski downgoing b/l. a/p --NIHSS 0 --Pt currently being transfused for anemia --Rest per primary team
[2017-10-30] MEDS ORDERED: INSULIN (NOVOLOG) ASPART 100 UNITS/ML 10ML VIAL ONE (20:22)
[2017-10-30] MEDS: ATORVASTATIN CA 20 MG TABLET (FP) PO SCH (21:16)
[2017-10-31] MEDS: sitaGLIPtin PHOSPHATE 25 MG TABLET (FP) PO SCH (06:30)
[2017-10-31] MEDS: LEVOTHYROXINE NA 50 MCG TABLET (FP) PO SCH (06:30)
[2017-10-31] MEDS: INSULIN SLIDING SCALE (NOVOLOG) 1 VIAL SQ SCH ×4 (06:30→22:44)
[2017-10-31] MEDS ORDERED: INSULIN (NOVOLOG) ASPART 100 UNITS/ML 10ML VIAL ONE (06:58)
--- NOTE | 2017-10-31 09:43 | PN ---
Progress Note (short form) - Note Progress Note: RENAL 72 WITH HTN DM ESRD S/P LEFT KNEE REPLACEMENT ON LAST WEEK DIALYZED SAT YESTERDAY COMPLAINED OF BITING HER LIP AND SWALLOW ISSUES SEEN BY RESIDENT THIS AM I M FINDING FACIAL ASYMMETRY CALLED NEURO PAGE CASE DISCUSSED NEEDS MRI LYDIA MONSIVAIS LEAVE ON METOPROLOL AVOID HYPOTENSION ON ASA 325 ALREADY HD TODAY AFTER NEURO WUP
--- NOTE | 2017-10-31 09:58 | CON.NEURO ---
Consult - History of Present Illness History of Present Illness: 72-year-old female, with a past medical history of DM,end-stage renal disease ( hemodialysis Tuesday), angina, hypertension, and osteoarthritis. Patient is S/P left knee replacement- as per pT she feels slurred speech and swallowing issue since tuesday -- more noted by team this Am she denies focal weakness, numbness, WILSON ; on exam noted to have left facial and LUE drift. - History Source History Provided By: Patient, Medical Record - Past Medical History ...: No - Alcohol/Substance Use Hx Alcohol Use: Yes (RARELY ONCE A YEAR) - Smoking History Smoking history: Former smoker Have you smoked in the past 12 months: No If you are a former smoker, when did you quit?: 21 YEARS AGO Home Medications - Allergies Allergies/Adverse Reactions: Allergies Allergy/AdvReac Type Severity Reaction Status Date / Time No Known Allergies Allergy Verified 10/25/17 09:50 - Home Medications Home Medications: Ambulatory Orders Bimatoprost [Lumigan] 1 drop OU BID 10/13/17 Brinzolamide/Brimonidine Tart [Simbrinza 1%-0.2% Eye Drops] 8 ml OD DAILY Calcium Acetate [Phoslo -] 667 mg PO TIDCM 10/13/17 Cinacalcet HCl [Sensipar] 60 mg PO DAILY 10/13/17 Levothyroxine [Synthroid -] 50 mcg PO DAILY 10/13/17 Metoprolol Succinate [Toprol Xl] 50 mg PO DAILY 10/13/17 Paroxetine HCl [Paxil -] 20 mg PO DAILY 10/13/17 Simvastatin [Zocor -] 40 mg PO HS 10/13/17 Sitagliptin Phosphate [Januvia] 25 mg PO DAILY 10/13/17 Telmisartan [Micardis] 40 mg PO DAILY 10/13/17 Aspirin [ASA -] 325 mg PO DAILY@0800 tablet 10/25/17 Oxycodone HCl/Acetaminophen [Oxycodone-Acetaminophen 5-325] 1 - 2 each PO Q6H # 50 tablet MDD 6 10/25/17 Sennosides/Docusate Sodium [Pericolace -] 2 tablet PO BID #14 tablet 10/28/17 Physical Exam-Neuro Vital Signs: Vital Signs Temperature 98.4 F 10/31/17 05:51 Pulse Rate 76 10/31/17 05:51 Respiratory Rate 20 10/31/17 05:51 Blood Pressure 122/65 10/31/17 05:51 O2 Sat by Pulse Oximetry (%) 99 10/30/17 21:00 Constitutional: Yes: Well Nourished, No Distress Labs: CBC, BMP 10/30/17 13:18 10/30/17 13:18 - Neuro Exam Level Of Consciousness: Yes: Alert (awake, alert, no aphasia, left facial, LUE drift, no sesnory c/o, reflexes trace , no dysmetria , (LLE limited motion given knee replacement) ) NIH Stroke Scale - Last Known Well Date/Time & Onset Date Last Known Well: 10/25/17 Time Last Known Well: 12:00 - Initial Evaluation Level of consciousness: Alert Ask patient the month and their age: Answers both correctly Ask patient to open & close eyes; make fist and let go: Obeys both correctly Best gaze (horizontal eye movement): Normal Visual field testing: No visual field loss Facial paresis (Show teeth/raise eyebrows/close eyes tight): Partial paralysis ( total or near paralysis of lower face) Motor Function: Left Arm: Drift Motor Function: Right Arm: Normal (extends arm 90 (or 45) degrees for 10 seconds without drift Motor Function: Left Leg: Drift Motor Function: Right Leg: Normal (extends leg 30 degrees for 5 seconds without drift) Limb Ataxia: No ataxia Sensory(Use pinprick test arms,legs,trunk,face/side to side): Normal Best language (Describe picture, name items, read sentences): No Aphasia Dysarthria (read several words): Mild to moderate slurring of words Extinction and Inattention: No abnormality - Total Score NIH Stroke Scale Score: 5 Problem List - Problems (1) CVA (cerebral vascular accident) Code(s): I63.9 - CEREBRAL INFARCTION, UNSPECIFIED (2) History of knee replacement procedure of left knee Code(s): Z96.652 - PRESENCE OF LEFT ARTIFICIAL KNEE JOINT (3) Hypertension Code(s): I10 - ESSENTIAL (PRIMARY) HYPERTENSION Assessment/Plan s/p left knee replacement with left sided facial and arm weakness, likely new R subcortical vs R MCA stroke + vasc RF, out of TPA window , check MRI BRAIN today ,( ECHO, dopplers, holter Cardiology consult if + ) ASA ( watch anemia status) add statin BP controlled LIPID panel teds/[facility] DR KENT
[2017-10-31] MEDS: ASPIRIN 325 MG TABLET PO SCH (10:08)
[2017-10-31] MEDS ORDERED: ATORVASTATIN CA 20 MG TABLET (FP) PO ONE (10:14)
[2017-10-31] MEDS: SENNOSIDES/DOCUSATE COMBO (SENNA PLUS) TABLET (UD) PO SCH ×2 (10:33→22:38)
[2017-10-31] MEDS: PANTOPRAZOLE 40 MG TABLET (FP) PO SCH (10:33)
[2017-10-31] MEDS: PARoxetine HCL 20 MG TABLET (FP) PO SCH (10:33)
[2017-10-31] MEDS: CALCIUM ACETATE 667 MG CAPSULE (FP) PO SCH ×3 (10:33→18:04)
[2017-10-31] MEDS: CINACALCET HCL 30 MG TAB (FP) PO SCH (10:33)
[2017-10-31] MEDS: MULTIVITAMINS (DAILY MVI) TABLET (FP) PO SCH (10:33)
[2017-10-31 10:43] LABS: BASO % 0.8 % (0-2.0); EOS % 2.9 % (0-4.5); HEMATOCRIT 23.9 % (32.4-45.2); HEMOGLOBIN 7.9 GM/dL (10.7-15.3); LYMPH % 20.2 % (8-40); MCH 32.5 pg (25.7-33.7); MCHC 33.2 g/dl (32.0-36.0); MEAN CELL VOLUME 98.1 fl (80-96); MEAN PLT VOLUME 8.3 fl (7.5-11.1); MONO % 12.9 % (3.8-10.2); NEUT % 63.2 % (42.8-82.8); PLATELET COUNT 236 K/MM3 (134-434); RBC 2.43 M/mm3 (3.60-5.2); RDW 15.6 % (11.6-15.6); WHITE BLOOD COUNT 6.8 K/mm3 (4.0-10.0)
[2017-10-31] MEDS: oxyCODONE HCL 5 MG TABLET PO PRN (12:23)
--- NOTE | 2017-10-31 18:04 | CONSULT ---
Consultation: REQUESTING PROVIDER: CONSULT REQUEST: We have been asked to medically evaluate this patient for evaluation of Possible Stroke. HISTORY OF PRESENT ILLNESS: Patient is a 72 year old female came in to [facility] for an elective Left knee replacement on 10/25/2017 and was transferred to [facility] for HD the same day. HD was done and Plan was to send her to [facility] the same day but couldn't be discharged due to hypotension (80/55 mmHg). Pt also had acute anemia (Hb dropped to 6.7), pt received 1 unit of blood and Hb improved. This morning, Dr. Anderson noticed left sided facial droop, Neurology was consulted, MRI of brain was done, hence consulted the medical team. Patient reports that she noticed left sided facial droop, decreased sensation on the left side of her face, left sided weakness and difficulty in swallowing. Denies headache, numbness or tingling sensation, visual problems, chest pain, sob, cough, palpitation. NO h/o stroke in the past, no h/o atrial fibrillation. Last HD was done one 10/29/2017 Saw her talent consultant in the beginning of October, for a medical clearance. Had a stress test done in the past but hasn't done a Cath. Past Medical Hx: DM, ESRD on HD since 10 yrs (hemodialysis Tuesday), angina, hypertension, and osteoarthritis Allergies: None Surgical Hx: Right knee replacement; Back surgeries Smoking Hx: Quit smoking 16 yrs ago, smoked 5-6 cigs/day for 3 yrs Alcohol: Occasional drinker, quit 16 yrs ago Drugs: Denies REVIEW OF SYSTEMS: CONSTITUTIONAL: Absent: fever, chills, diaphoresis, generalized weakness, malaise, loss of appetite, weight change HEENT: Absent: rhinorrhea, nasal congestion, throat pain, throat swelling, difficulty swallowing, mouth swelling, ear pain, eye pain, visual changes CARDIOVASCULAR: Absent: chest pain, syncope, palpitations, irregular heart rate, lightheadedness , peripheral edema RESPIRATORY: Absent: cough, shortness of breath, dyspnea with exertion, orthopnea, wheezing, stridor, hemoptysis GASTROINTESTINAL: Absent: abdominal pain, abdominal distension, nausea, vomiting, diarrhea, constipation, melena, hematochezia GENITOURINARY: Absent: dysuria, frequency, urgency, hesitancy, hematuria, flank pain, genital pain MUSCULOSKELETAL: Absent: myalgia, arthralgia, joint swelling, back pain, neck pain SKIN: Absent: rash, itching, pallor HEMATOLOGIC/IMMUNOLOGIC: Absent: easy bleeding, easy bruising, lymphadenopathy, frequent infections ENDOCRINE: Absent: unexplained weight gain, unexplained weight loss, heat intolerance, cold intolerance NEUROLOGIC: Present: Left sided facial droop, left sided weakness Absent: headache, focal weakness or paresthesias, dizziness, unsteady gait, seizure, mental status changes, bladder or bowel incontinence PSYCHIATRIC: Absent: anxiety, depression, suicidal or homicidal ideation, hallucinations. PHYSICAL EXAMINATION Vital Signs - 24 hr 10/30/17 10/30/17 10/31/17 21:00 21:18 05:51 Temperature 98 F 98.4 F Pulse Rate 72 76 Respiratory 20 20 20 Rate Blood Pressure 105/62 122/65 O2 Sat by Pulse 99 Oximetry (%) 10/31/17 16:20 Temperature 98.7 F Pulse Rate 72 Respiratory 20 Rate Blood Pressure 111/73 O2 Sat by Pulse Oximetry (%) GENERAL: Elderly female, lying comfortably in bed, Awake, alert, and fully oriented, in no acute distress. HEAD: Normal with no signs of trauma. EYES: EOM intact, no pallor or icterus. EARS, NOSE, THROAT: Ears normal. Moist mucous membranes. NECK: Supple, no Carotid bruit. LUNGS: B/L Breath sounds equal, clear to auscultation bilaterally. No wheezes, and no crackles. No accessory muscle use. HEART: Regular rate and rhythm, normal S1 and S2 without murmur. ABDOMEN: Soft, nontender, not distended, normoactive bowel sounds, no guarding, no rebound, no masses. No hepatomegaly or splenomegaly. MUSCULOSKELETAL: Normal range of motion at all joints. No bony deformities or tenderness. No CVA tenderness. UPPER EXTREMITIES: 2+ pulses, warm, well-perfused. No cyanosis. No clubbing. Cap refill <2 seconds. No peripheral edema. LOWER EXTREMITIES: 2+ pulses, warm, well-perfused. No calf tenderness. No peripheral edema. NEUROLOGICAL: Left sided facial droop, decreased sensation on the left side, Left sided pronator drift sign positive, Finger nose test negative, Babinski - right downgoing, unable to perform on the left. Cranial nerves II-XII intact except for 7th. Normal speech. Gait not observed. PSYCHIATRIC: Cooperative. Good eye contact. Appropriate mood and affect. SKIN: Warm, dry, normal turgor, no rashes or lesions noted. Laboratory Results - last 24 hr 10/27/17 10/30/17 10/31/17 15:20 20:56 06:00 WBC RBC Hgb Hct MCV MCH MCHC RDW Plt Count MPV Absolute Neuts (auto) Neutrophils % Lymphocytes % Monocytes % Eosinophils % Basophils % Nucleated RBC % POC Glucometer 156 110 Phosphorus HCV Quantitation Hcv not detected 10/31/17 10/31/17 10/31/17 10:20 10:20 11:56 WBC 6.8 RBC 2.43 L Hgb 7.9 L D Hct 23.9 L D MCV 98.1 H MCH 32.5 MCHC 33.2 RDW 15.6 Plt Count 236 MPV 8.3 Absolute Neuts (auto) 4.3 Neutrophils % 63.2 Lymphocytes % 20.2 Monocytes % 12.9 H Eosinophils % 2.9 Basophils % 0.8 Nucleated RBC % 0 POC Glucometer 105 Phosphorus 5.3 H HCV Quantitation 10/31/17 17:21 WBC RBC Hgb Hct MCV MCH MCHC RDW Plt Count MPV Absolute Neuts (auto) Neutrophils % Lymphocytes % Monocytes % Eosinophils % Basophils % Nucleated RBC % POC Glucometer 127 Phosphorus HCV Quantitation Active Medications Generic Name Dose Route Start Last Admin Trade Name Freq PRN Reason Stop Dose Admin Al Hydroxide/Mg Hydroxide 30 ml 10/25/17 13:24 Mylanta Oral Suspension - PO Q4H PRN DYSPEPSIA Aspirin 325 mg 10/26/17 08:00 10/31/17 10:08 Asa - PO 325 mg DAILY@0800 LEE Administration Atorvastatin Calcium 20 mg 10/25/17 22:00 10/30/17 21:16 Lipitor - PO 20 mg HS LEE Administration Calcium Acetate 1,334 mg 10/27/17 18:05 10/31/17 12:23 Phoslo - PO 1,334 mg TIDCM LEE Administration Cinacalcet 60 mg 10/26/17 10:00 10/31/17 10:33 Sensipar - PO 60 mg DAILY LEE Administration Fentanyl 50 mcg 10/25/17 13:37 10/25/17 14:05 Sublimaze Injection - IVPUSH 50 mcg [id number] PRN Administration PAIN-PACU ORDER X 4 DOSES ONLY Insulin Aspart 1 vial 10/25/17 16:30 10/31/17 17:40 Novolog Vial Sliding Scale - SQ Not Given ACHS [facility] Protocol Levothyroxine Sodium 50 mcg 10/26/17 07:00 10/31/17 06:30 Synthroid - PO 50 mcg DAILY@0700 [facility] Administration Magnesium Hydroxide 30 ml 10/25/17 13:24 Milk Of Magnesia - PO PRN PRN CONSTIPATION Metoprolol Succinate 50 mg 10/29/17 22:00 10/30/17 21:17 Toprol Xl - PO Not Given HS [facility] Multivitamins/Minerals/Vitamin C 1 tab 10/26/17 10:00 10/31/17 10:33 Tab-A-Vit - PO 1 tab DAILY [facility] Administration Non-Formulary Medication 1 drop 10/25/17 22:00 Bimatoprost [Lumigan] OU BID [facility] Non-Formulary Medication 8 ml 10/26/17 10:00 Brinzolamide/Brimonidine Tart [Simbrinza 1%-0.2% Eye Drops] OD DAILY [facility] Ondansetron HCl 4 mg 10/25/17 13:37 10/25/17 13:44 Zofran Injection IVPUSH 4 mg Q6H PRN Administration NAUSEA AND/OR VOMITING Oxycodone HCl 5 mg 10/28/17 18:43 10/31/17 12:23 Roxicodone - PO 5 mg Q3H PRN Administration PAIN LEVEL 1-5 Oxycodone HCl 10 mg 10/28/17 18:43 10/28/17 20:09 Roxicodone - PO 10 mg Q3H PRN Administration PAIN LEVEL 6-10 Pantoprazole Sodium 40 mg 10/26/17 10:00 10/31/17 10:33 Protonix - PO 40 mg DAILY [facility] Administration Paroxetine HCl 20 mg 10/26/17 10:00 10/31/17 10:33 Paxil - PO 20 mg DAILY [facility] Administration Senna/Docusate Sodium 2 tablet 10/25/17 22:00 10/31/17 10:33 Pericolace - PO 2 tablet BID [facility] Administration Sitagliptin Phosphate 25 mg 10/26/17 10:00 10/31/17 06:30 Januvia - PO 25 mg ACBK LEE Administration MRI of brain 10/31/2017: Moderate atrophy and moderate to marked chronic microvascular ischemic disease changes. Multiple bilateral cerebellar lacunar infarcts as well as a lacunar infarct in the right splenium, right occipital and right parietal lobe. Larger focus of acute/subacute infarct in the right frontal lobe at the level of the medeiros radiata and centrum semiovale measuring 2.5 x 1.8 cm. No gross mass lesion or intracranial hemorrhage identified. Focal semilunar abnormal signal intensity seen superior lateral aspect of the left orbit that may be post op. ASSESSMENT/PLAN: Patient is a 72 year old female with significant past medical hx of DM, HTN, ESRD on HD, OA, Angina came in to [facility] for an elective Left knee replacement on 10/25/2017 found to have acute/subacute stroke. # Acute vs Subacute stroke NIH stroke scale-4 c/o facial droop, left sided weakness MRI shows Multiple bilateral cerebellar lacunar infarcts as well as a lacunar infarct in the right splenium, right occipital and right parietal lobe. Transfer the patient to [facility] floor Continuous cardiac monitoring Patient is not a candidate for a tPA (out of window and patient is anemic with recent h/o BT) As per Dr. Borges's recommendation, will continue Aspirin, statin, will hold MRA for now Bed side trial of sips followed by Speech and swallow eval in the morning. If she tolerates sips of water will place her on Dysphagia puree diet. For now she will be NPO. Stat EKG done, attached in the chart ECHO, Carotid doppler, duplex of lower ext ordered Cardiology consult requested # Hypertension- Now hypotensive Labile blood pressure hold Diovan # End-stage renal disease on HD TTS Last HD was done on Sat. NExt HD tomorrow. Continue hemodialysis as scheduledstrict intake and output # Diabetes Mellitus Continue Januvia and fingersticks before meals and at bedtime with regular insulin coverage as per sliding scale # Hypothyroidism Continue levothyroxine once swallow eval is done. # FEN IV NS @ 42 mls/hr Electrolyes WNL NPO for now until bed side swallow eval is done. # Prophylaxis For DVT: SCd's For GI: Not indicated # Code Status: Full Code Illness, Investigation and Plan of care explained to the patient and her son. They verbalized understanding. Case seen and discussed with Dr. Borges and Dr. Rocha. Dispo: We will continue to follow the patient. Thank you for this consultative opportunity. Visit type - Emergency Visit Emergency Visit: Yes ED Registration Date: 10/25/17 Care time: The patient presented to the Emergency Department on the above date and was hospitalized for further evaluation of their emergent condition. - New Patient This patient is new to me today: Yes Date on this admission: 10/31/17 - Critical Care Critical Care patient: No
--- NOTE | 2017-10-31 18:06 | PN ---
Teaching Attending Note Name of Resident: Melina Merchant ATTENDING PHYSICIAN STATEMENT I saw and evaluated the patient. I reviewed the resident's note and discussed the case with the resident. I agree with the resident's findings and plan as documented with exceptions below. SUBJECTIVE: 72 yof with PMHx of ESRD on HD, NIDDM, HTN, angina, Osteoarthritis admitted to [facility] s/p elective left TKR 10/25/2017 under spinal anesthesia, transferred to [facility] for HD, post operative course complicated by hypotension requiring holding his anti-hypertensives and anemia s/p 1 unit PRBC 10/30/2017, reported abnormal lip movements, and today noted with facial asymmetry and reporting slurred speech to PT. Was seen by neurology and found with facial asymmetry and LUE drift and planned for stroke workup. We are consulted to assist in comanagement given new active concerns. Currently patient reports some trouble swallowing, also son at bedside, left facial droop. Currently with no obvious speech difficulties. reports pain left knee pain. OBJECTIVE: Vital Signs Period Temp Pulse Resp BP Sys/Palacios Pulse Ox Last 24 Hr 98 F-98.7 F 72-76 20-20 105-122/62-73 99 Intake & Output 10/28/17 10/29/17 10/30/17 10/31/17 23:59 23:59 23:59 23:59 Intake Total 554 331 5337 800 Balance 296 861 0828 800 Weight 188 lb 0.2 oz GENERAL: Awake, alert, and fully oriented, in no acute distress. HEAD: Normal with no signs of trauma. EYES: pupils reactive but greyish cornea with limited exam, EOMI EARS, NOSE, THROAT: Ears normal, nares patent, oropharynx clear without exudates. Moist mucous membranes. NECK: soft, supple, no JVD LUNGS: limited exam but no rales or wheezing appreciated HEART: S1S2 regular but limited by chest wall and body habitus ABDOMEN: Soft, obese, nontender, not distended, normoactive bowel sounds, no guarding, no rebound, no masses. MUSCULOSKELETAL: marked limitation ROM left knee, with dressing, no active bleed , left knee swelling Extremities: LLE knee swelling with limitation of ROM, no calf tenderness, neg jeffrey's sign. NEUROLOGICAL: AAOX3, left facial droop, sensation symmetric bilalateral face and extremities gross touch, LUE 3/5, LLE 0-1/5 (limitation by pain as well, limiting detailed exam), Left pronator drift, RUE 5/5, RLE 5/5, babinski down going RLE, no response LLE PSYCHIATRIC: Cooperative. Good eye contact. Appropriate mood and affect. SKIN: Warm, dry, normal turgor, no rashes or lesions noted, normal capillary refill. Home Medications Medication Instructions Recorded Bimatoprost [Lumigan] 1 drop OU BID 10/13/17 Brinzolamide/Brimonidine Tart 8 ml OD DAILY 10/13/17 [Simbrinza 1%-0.2% Eye Drops] Calcium Acetate [Phoslo -] 667 mg PO TIDCM 10/13/17 Cinacalcet HCl [Sensipar] 60 mg PO DAILY 10/13/17 Levothyroxine [Synthroid -] 50 mcg PO DAILY 10/13/17 Metoprolol Succinate [Toprol Xl] 50 mg PO DAILY 10/13/17 Paroxetine HCl [Paxil -] 20 mg PO DAILY 10/13/17 Simvastatin [Zocor -] 40 mg PO HS 10/13/17 Sitagliptin Phosphate [Januvia] 25 mg PO DAILY 10/13/17 Telmisartan [Micardis] 40 mg PO DAILY 10/13/17 Aspirin [ASA -] 325 mg PO DAILY@0800 tablet 10/25/17 Oxycodone HCl/Acetaminophen 1 - 2 each PO Q6H #50 tablet MDD 6 10/25/17 [Oxycodone-Acetaminophen 5-325] Sennosides/Docusate Sodium 2 tablet PO BID #14 tablet 10/28/17 [Pericolace -] Active Medications Al Hydroxide/Mg Hydroxide (Mylanta Oral Suspension -) 30 ml PO Q4H PRN PRN Reason: DYSPEPSIA Aspirin (Asa -) 325 mg PO DAILY@0800 [facility] Last Admin: 10/31/17 10:08 Dose: 325 mg Atorvastatin Calcium (Lipitor -) 20 mg PO HS [facility] Last Admin: 10/30/17 21:16 Dose: 20 mg Calcium Acetate (Phoslo -) 1,334 mg PO TIDCM [facility] Last Admin: 10/31/17 18:04 Dose: 1,334 mg Cinacalcet (Sensipar -) 60 mg PO DAILY [facility] Last Admin: 10/31/17 10:33 Dose: 60 mg Fentanyl (Sublimaze Injection -) 50 mcg IVPUSH [id number] PRN PRN Reason: PAIN-PACU ORDER X 4 DOSES ONLY Last Admin: 10/25/17 14:05 Dose: 50 mcg Insulin Aspart (Novolog Vial Sliding Scale -) 1 vial SQ [facility]; Protocol Last Admin: 10/31/17 17:40 Dose: Not Given Levothyroxine Sodium (Synthroid -) 50 mcg PO DAILY@0700 [facility] Last Admin: 10/31/17 06:30 Dose: 50 mcg Magnesium Hydroxide (Milk Of Magnesia -) 30 ml PO PRN PRN PRN Reason: CONSTIPATION Metoprolol Succinate (Toprol Xl -) 50 mg PO [facility] Last Admin: 10/30/17 21:17 Dose: Not Given Multivitamins/Minerals/Vitamin C (Tab-A-Vit -) 1 tab PO DAILY [facility] Last Admin: 10/31/17 10:33 Dose: 1 tab Non-Formulary Medication (Bimatoprost [Lumigan]) 1 drop OU BID [facility] Non-Formulary Medication (Brinzolamide/Brimonidine Tart [Simbrinza 1%-0.2% Eye Drops]) 8 ml OD DAILY [facility] Ondansetron HCl (Zofran Injection) 4 mg IVPUSH Q6H PRN PRN Reason: NAUSEA AND/OR VOMITING Last Admin: 10/25/17 13:44 Dose: 4 mg Oxycodone HCl (Roxicodone -) 5 mg PO Q3H PRN PRN Reason: PAIN LEVEL 1-5 Last Admin: 10/31/17 12:23 Dose: 5 mg Oxycodone HCl (Roxicodone -) 10 mg PO Q3H PRN PRN Reason: PAIN LEVEL 6-10 Last Admin: 10/28/17 20:09 Dose: 10 mg Pantoprazole Sodium (Protonix -) 40 mg PO DAILY [facility] Last Admin: 10/31/17 10:33 Dose: 40 mg Paroxetine HCl (Paxil -) 20 mg PO DAILY [facility] Last Admin: 10/31/17 10:33 Dose: 20 mg Senna/Docusate Sodium (Pericolace -) 2 tablet PO BID [facility] Last Admin: 10/31/17 10:33 Dose: 2 tablet Sitagliptin Phosphate (Januvia -) 25 mg PO ACBK LEE Last Admin: 10/31/17 06:30 Dose: 25 mg Laboratory Results - last 24 hr 10/27/17 10/30/17 10/31/17 15:20 20:56 06:00 WBC RBC Hgb Hct MCV MCH MCHC RDW Plt Count MPV Absolute Neuts (auto) Neutrophils % Lymphocytes % Monocytes % Eosinophils % Basophils % Nucleated RBC % POC Glucometer 156 110 Phosphorus HCV Quantitation Hcv not detected 10/31/17 10/31/17 10/31/17 10:20 10:20 11:56 WBC 6.8 RBC 2.43 L Hgb 7.9 L D Hct 23.9 L D MCV 98.1 H MCH 32.5 MCHC 33.2 RDW 15.6 Plt Count 236 MPV 8.3 Absolute Neuts (auto) 4.3 Neutrophils % 63.2 Lymphocytes % 20.2 Monocytes % 12.9 H Eosinophils % 2.9 Basophils % 0.8 Nucleated RBC % 0 POC Glucometer 105 Phosphorus 5.3 H HCV Quantitation 10/31/17 17:21 WBC RBC Hgb Hct MCV MCH MCHC RDW Plt Count MPV Absolute Neuts (auto) Neutrophils % Lymphocytes % Monocytes % Eosinophils % Basophils % Nucleated RBC % POC Glucometer 127 Phosphorus HCV Quantitation MRI brain - MRI of the brain without intravenous contrast A noncontrast MRI of the brain was performed with multiplanar T1 and T2-weighted images obtained. No prior CT scan or MRI of the brain is available for comparison. There is moderate atrophy, ventricular dilatation and moderate to marked periventricular chronic microvascular ischemic disease changes. There are multiple small foci of restricted diffusion in the right and left cerebellum consistent with acute/ subacute cortical infarcts. There is an acute/subacute lacunar infarct in the right occipital lobe. Another acute/subacute lacunar infarct is seen in the splenium of the corpus callosum, on the right. There is also a focal acute/ subacute infarct in the right frontal lobe at the level of the medeiros radiata and centrum semiovale measuring 2.5 x 1.8 cm. Another acute/ subacute lacunar infarcts present in the right parietal lobe. No mass lesion or intracranial hemorrhage are identified. There is no shift of the midline structures. The craniocervical junction appears unremarkable. Flow voids are present within the central intracranial arteries circulation. Mild deviation of the nasal septum to the left. There is minimal mucosal thickening in the ethmoid air cells. The mastoid air cells are well aerated. Both orbits appear unremarkable except for what appears like a semilunar density seen in the upper/outer aspect of the left orbit that may be postsurgical. Correlate can correlation with CT scan of the orbits could be obtained. No suspicious bone marrow abnormal signal is identified. Impression: Moderate atrophy and moderate to marked chronic microvascular ischemic disease changes. Multiple bilateral cerebellar lacunar infarcts as well as a lacunar infarct in the right splenium, right occipital and right parietal lobe. Larger focus of acute/subacute infarct in the right frontal lobe at the level of the medeiros radiata and centrum semiovale measuring 2.5 x 1.8 cm. No gross mass lesion or intracranial hemorrhage identified. Focal semilunar abnormal signal intensity seen superior lateral aspect of the left orbit that may be post op. Correlate clinically and if needed correlation with CT scan of the orbits could be obtained for further evaluation. EKG inverted P waves, ?ectopic atrial rhythm, LVH ASSESSMENT AND PLAN: 72 yof with PMHx of ESRD on HD, HTN, angina, NIDDM, osteoarthritis s/p elective TKR 10/25/2017, post operative course complicated by hypotension/anemia now with Acute CVA. -Acute/subacute right frontal lobe CVA, Multiple lacunar infarcts in bilateral cerebellum/right splenium/right occipital/parietal lobe, likely embolic CVA -?Ectopic atrial rhythm on EKG -Osteoarthritis s/p elective TKR 10/25/2017 -Post operative hypotension -Acute blood loss anemia on ACD, s/p 1 unit PRBC 10/30/2017 -HTN -Angina -NIDDM Plan: Discussed with Dr. Borges. recent surgery with significant anemia post op s/p 1 unit pRBC. recommend ASA 325 mg for now. CVA pattern concerning for embolic event. Tansfer to stroke telemetry. cardiology input. LE duplex, 2d echo with doppler study. Will need holter if no evens noted on telemetry inhouse. Likely EP study once improved. likely will need anticoagulation in fdc if no surgical or bleed contra indication. FOBT Cardiology input. Check 2D echo, will need holter if no events noted on telemetry inhouse. Check carotid dopplers. Bedside swallow eval, if clears, dysphagia puree with nectar thick. If fails, NPO. Speech/swallow eval, aspiraiton precautions. . Will defer to neurology/orthopedic about anticoagulation. Continue ASA 325 if ok with surgery. Statin started. Check lipid panel. Anti-hypertensives on hold, continue to hold for now. ISS. as above. Hold sitagliptin Pain control with tylenol/oxycodone with close monitoring of mental status. DVTPPX per orthopedic. Dispo transfer to stroke tele. Will continue to follow. Thank you for this consultative opportunity. Plan discussed with patient and son at bedside in detail, all questions answered. Also discussed with Dr. Borges and care co-ordinated with RN. total consult time spent 70 min.
[2017-10-31] MEDS ORDERED: SODIUM CHLORIDE 1,000 ML IV SCH ×2 (19:45→20:00)
[2017-10-31] MEDS: ATORVASTATIN CA 20 MG TABLET (FP) PO SCH (22:38)
[2017-11-01] MEDS: LEVOTHYROXINE NA 50 MCG TABLET (FP) PO SCH (06:18)
[2017-11-01] MEDS: INSULIN SLIDING SCALE (NOVOLOG) 1 VIAL SQ SCH ×4 (06:18→22:49)
[2017-11-01 07:15] LABS: HEMATOCRIT 21.6 % (32.4-45.2); HEMOGLOBIN 7.4 GM/dL (10.7-15.3); MCH 33.4 pg (25.7-33.7); MCHC 34.2 g/dl (32.0-36.0); MEAN CELL VOLUME 97.8 fl (80-96); MEAN PLT VOLUME 8.1 fl (7.5-11.1); PLATELET COUNT 211 K/MM3 (134-434); RBC 2.21 M/mm3 (3.60-5.2); RDW 15.1 % (11.6-15.6); WHITE BLOOD COUNT 6.7 K/mm3 (4.0-10.0)
[2017-11-01] MEDS ORDERED: ONDANSETRON 4 MG/2 ML VIAL IVPUSH PRN (07:46)
[2017-11-01] MEDS ORDERED: MAG HYDROX/AL HYDROX/SIMETH 30 ML UNIT-DOSE CUP PO PRN (07:46)
[2017-11-01] MEDS ORDERED: MAGNESIUM HYDROX 2400MG/30ML ORAL SUSPENSION 30 ML CUP PO PRN (07:46)
[2017-11-01 07:49] LABS: CHLORIDE 99 mmol/L (98-107); POTASSIUM 4.5 mmol/L (3.5-5.1); SODIUM 137 mmol/L (136-145)
[2017-11-01 08:25] LABS: ALBUMIN 2.3 g/dl (3.4-5.0); ALK PHOS 60 U/L (45-117); ANION GAP 10 (8-16); BILIRUBIN,TOTAL 0.4 mg/dL (0.2-1.0); BLOOD UREA NITROGEN 50 mg/dL (7-18); CALCIUM 8.8 mg/dL (8.5-10.1); CHOLESTEROL 131 mg/dL (50-200); CO2 28 mmol/L (21-32); GLUCOSE,RANDOM 68 mg/dL (74-106); HDL CHOLESTEROL 41 mg/dL (40-60); MAGNESIUM 2.1 mg/dL (1.8-2.4); PHOSPHOROUS 5.2 mg/dL (2.5-4.9); SGOT/AST 11 U/L (15-37); SGPT/ALT 6 U/L (12-78); TOT PROT 5.8 g/dl (6.4-8.2); TRIGLYCERIDES 103 mg/dL (35-160)
[2017-11-01] MEDS ORDERED: PATIENT'S OWN MEDICATION (NON-FORMULARY) (Brinzolamide/Brimonidine Tart [Simbrinza 1%-0.2% OD SCH (10:00)
[2017-11-01] MEDS: ASPIRIN 325 MG TABLET PO SCH (10:05)
--- NOTE | 2017-11-01 10:10 | CONSULT ---
Admitting History and Physical - Primary Care Physician PCP: renetta - Admission History of Present Illness: s/p left knee replacement with left sided facial and arm weakness, +MRI Multiple bilateral cerebellar lacunar infarcts as well as a lacunar infarct in the right splenium, right occipital and right parietal lobe. Selected Entries 10/31/17 10/31/17 10/31/17 05:51 12:14 16:20 Breakfast 75% Intake, Oral Amount Lunch 75% Supper Temperature 98.4 F 98.7 F 10/31/17 10/31/17 11/01/17 19:41 21:48 01:00 Breakfast Intake, Oral Amount Lunch Supper 50% Temperature 97.9 F 98.3 F 98.5 F 11/01/17 11/01/17 05:00 06:00 Breakfast Intake, Oral 0 Amount Lunch Supper Temperature 97.9 F Laboratory Tests 11/01/17 06:22 Sodium 137 Pt feels she had a stroke last Tuesday, coughing on food, biting left lower lip , "slurring her speech." History Source: Patient, Medical Record Limitations to Obtaining History: No Limitations - Past Medical History ...: No - Advance Directives Advance Directives: Yes: Health Care Proxy - Smoking History Smoking history: Former smoker Have you smoked in the past 12 months: No If you are a former smoker, when did you quit?: 21 YEARS AGO - Alcohol/Substance Use Hx Alcohol Use: Yes (RARELY ONCE A YEAR) History - Admission Reason For Visit: OSTEOARTHRITIS - Diagnostics MRI: Report Reviewed (Multiple bilateral cerebellar lacunar infarcts as well as a lacunar infarct in the right splenium, right occipital and right parietal lobe.) - General Mental Status: Alert and Oriented, Awake and Alert, Able to Follow Commands Attention: Intact Ability to Follow Directions: Excellent Head/Neck Control: WFL - Hearing Hearing: Normal Hearing Aide: No Speech Evaluation - Communication Primary Language: [place] Communication: Yes: Dysarthria Oral Expression Ability: Yes: Mild Impairment - Speech Production Able to Make Needs Known: Yes: WNL Intelligibility: Yes: Mildly Impaired - Speech Characteristics Voice Loudness: Normal Voice Pitch: Yes: Mildly Low Voice Phonatory-based Quality: Yes: Dysphonia Speech Pattern: Impaired Speech Clarity: < 100% Nasal Resonance: Normal Articulation: Yes: Imprecise Rate of Speech: Intact - Language/Auditory Comprehension Follows: Yes: 2 Stage Simple Commands - Language/Verbal Expression Able to Respond to Simple Queries: Yes: WNL Able to Communicate Wants and Needs: Yes: WNL Functional Communication Status: Yes: WNL - Memory/Perception senior care Memory: Yes: WNL Short Term Memory: Yes: WNL - Swallow Evaluation/Bedside Assessment Current Nutritional Intake: NPO Oral Secretions: Yes: WFL Dentition: Yes: Adequate Facial Symmetry at Rest: Facial Droop Left Facial Symmetry on Retraction: Facial Droop Left Sensation: Reduced Left Against Resistance Opening: Normal Against Resistance Closing: Normal Pucker Lips: Droops Left Smile: Droops Left Lingual Movement: Normal, Symmetric Lingual Speed of Movement: Normal Lingual Movement Strgth Against Opposition: Normal Lingual Movement Characteristics: Normal Laryngeal Movement: Able to Palpate, Labored,delay initiation Rate of Intake: WFL Labial Seal: Impaired Left Oral Prep Time: WFL A-P Transit: WFL Timing of Swallow: Delayed Coughing/Throat Clear: Yes (on saliva. Intermittent on thin liquid) Recommendations - Speech Evaluation, Impression/Plan Impression: Pt with multiple infarcts on MRI. Mild dysarthria/dysphonia with intermittent coughing on saliva/water trials. Language/Cognition grossly intact. - Disposition Discharge to: [facility] - Dysphagia Impressions/Plan Swallowing Skills: Impaired Dysphagia Impressions: Ongoing Evaluation *Silent aspiration: cannot be R/O at bedside Recommendations: Modified Barium Swallow (To further assess swallowing function and provide least restrictive diet that pt can safely tolerate) - Recommendations Diet Consistency: Dysphagia Minced Medication Administration: Crushed with applesauce Liquids: [place] Thick Supplement: Nepro
--- NOTE | 2017-11-01 11:35 | PN ---
Progress Note (short form) - Note Progress Note: Chief Complaint: Events noted, notes reviewed, acute stroke with evidence of multiple infarcts on MRI, History of Present Illness: Seen and examined on telemetry. Full consult dictated - Current Medication List Current Medications: Current Medications Al Hydroxide/Mg Hydroxide (Mylanta Oral Suspension -) 30 ml PO Q4H PRN PRN Reason: DYSPEPSIA Aspirin (Asa -) 325 mg PO DAILY@0800 [facility] Last Admin: 11/01/17 10:05 Dose: 325 mg Atorvastatin Calcium (Lipitor -) 20 mg PO HS [facility] Calcium Acetate (Phoslo -) 1,334 mg PO TIDCM [facility] Cinacalcet (Sensipar -) 60 mg PO DAILY [facility] Sodium Chloride (Normal Saline -) 1,000 mls @ 42 mls/hr IV ASDIR [facility] Last Admin: 10/31/17 22:39 Dose: 42 mls/hr Insulin Aspart (Novolog Vial Sliding Scale -) [address] [facility]; Protocol Levothyroxine Sodium (Synthroid -) 50 mcg PO DAILY@0700 [facility] Magnesium Hydroxide (Milk Of Magnesia -) 30 ml PO PRN PRN PRN Reason: CONSTIPATION Metoprolol Succinate (Toprol Xl -) 50 mg PO HS [facility] Multivitamins/Minerals/Vitamin C (Tab-A-Vit -) 1 tab PO DAILY [facility] Non-Formulary Medication (Bimatoprost [Lumigan]) 1 drop OU BID [facility] Non-Formulary Medication (Brinzolamide/Brimonidine Tart [Simbrinza 1%-0.2% Eye Drops]) 8 ml OD DAILY [facility] Ondansetron HCl (Zofran Injection) 4 mg IVPUSH Q6H PRN PRN Reason: NAUSEA AND/OR VOMITING Pantoprazole Sodium (Protonix -) 40 mg PO DAILY [facility] Paroxetine HCl (Paxil -) 20 mg PO DAILY [facility] Senna/Docusate Sodium (Pericolace -) 2 tablet PO BID [facility] Review of Systems: Cardiovascular: As noted above Respiratory: denies: Cough or Sputum Production Gastrointestinal: denies: Nausea, Vomiting, Diarrhea, Constipation or Abdominal Discomfort Musculoskeletal: No Symptoms Reported Endocrine: No Symptoms Reported - Objective Vital Signs: Last Vital Signs Temp Pulse Resp BP Pulse Ox 97.9 F 64 20 130/74 96 11/01/17 05:00 11/01/17 05:00 11/01/17 05:00 11/01/17 05:00 10/31/17 22:00 Intake & Output 10/29/17 10/30/17 10/31/17 11/01/17 23:59 23:59 23:59 23:59 Intake Total 530 1252 800 0 Balance 530 1252 800 0 Weight 188 lb 0.2 oz Neck: Supple Negative JVD No Bruit Cardiovascular: S1 S2 regular rate and rhythm grade 1-2/6 LIBERTAD Respiratory: Clear Gastrointestinal: Soft Benign Normal Bowel Sounds Ext: No Edema Labs: CBC, BMP 11/01/17 06:22 11/01/17 06:22 Assessment/Plan 1. Acute stroke with evidence or multiple embolic infarcts on MRI of the brain 2. Probable CAD with no clinical angina pectoris 3. Probable diastolic LV dysfunction with class 0 NHYA classification LV failure 4. Hypertensive cardiovascular disease 5. DM 6. Hypercholestrolemia 7. Hypothyroidism 8. Carotid stenosis 9. ESRD on HD 10. DJD post recent left knee arthro-plasty, prior history of right knee arhthro -plasty 11. Anmeia 12. Glaucoma with right eye blindness PLAN: 1. Continue Toprol XL 2. Recommend resumption of ARBS unless it is absolutely contraindicated 3. Continue Lipitor 4. Continue ASA for now, pending further evaluation 5. Echocardiography for evaluation of LV & RV systolic 6. Patient may require MOLLY for further evaluation of source of embolism 7. Recommend outpatient extended monitor or ILR for evaluation of possible PAF as culprit to the above noted embolic events on brain MRI Above was discussed in detail with the patient Tru Erickson MD
--- NOTE | 2017-11-01 12:19 | EKG ---
Test Reason : Blood Pressure : / mmHG Vent. Rate : 067 BPM Atrial Rate : 067 BPM P-R Int : 140 ms QRS Dur : 092 ms QT Int : 442 ms P-R-T Axes : -73 000 026 degrees QTc Int : 467 ms NORMAL SINUS RHYTHM MINIMAL VOLTAGE CRITERIA FOR LVH, MAY BE NORMAL VARIANT NONSPECIFIC ST AND T WAVE ABNORMALITY ABNORMAL ECG Confirmed by MD BLNACHE, HARMEET ([id number]) on 11/01/2017 12:18:47 PM Referred By: Alex Young Confirmed By:HARMEET MANCIA MD
[2017-11-01] MEDS ORDERED: PARoxetine HCL 10 MG TABLET (FP) ONE (12:31)
[2017-11-01] MEDS ORDERED: PT OWN MED DRAWER 7, Y5N ONE ×3 (12:32→18:00)
[2017-11-01] MEDS: SENNOSIDES/DOCUSATE COMBO (SENNA PLUS) TABLET (UD) PO SCH ×2 (12:40→22:46)
[2017-11-01] MEDS: MULTIVITAMINS (DAILY MVI) TABLET (FP) PO SCH (12:40)
[2017-11-01] MEDS: CALCIUM ACETATE 667 MG CAPSULE (FP) PO SCH ×3 (12:41→17:58)
[2017-11-01] MEDS: PARoxetine HCL 20 MG TABLET (FP) PO SCH (12:41)
[2017-11-01] MEDS: PANTOPRAZOLE 40 MG TABLET (FP) PO SCH (12:42)
[2017-11-01] MEDS: CINACALCET HCL 30 MG TAB (FP) PO SCH (12:43)
--- NOTE | 2017-11-01 12:46 | PN ---
Progress Note (short form) - Note Progress Note: s/p left knee replacement with left sided facial and arm weakness, likely new R subcortical vs R MCA stroke + vasc RF, out of TPA window , MRI brain - MRI of the brain without intravenous contrast A noncontrast MRI of the brain was performed with multiplanar T1 and T2-weighted images obtained. No prior CT scan or MRI of the brain is available for comparison. There is moderate atrophy, ventricular dilatation and moderate to marked periventricular chronic microvascular ischemic disease changes. There are multiple small foci of restricted diffusion in the right and left cerebellum consistent with acute/ subacute cortical infarcts. There is an acute/subacute lacunar infarct in the right occipital lobe. Another acute/subacute lacunar infarct is seen in the splenium of the corpus callosum, on the right. There is also a focal acute/ subacute infarct in the right frontal lobe at the level of the medeiros radiata and centrum semiovale measuring 2.5 x 1.8 cm. Another acute/ subacute lacunar infarcts present in the right parietal lobe. No mass lesion or intracranial hemorrhage are identified. There is no shift of the midline structures. The craniocervical junction appears unremarkable. Flow voids are present within the central intracranial arteries circulation. Mild deviation of the nasal septum to the left. There is minimal mucosal thickening in the ethmoid air cells. The mastoid air cells are well aerated. Both orbits appear unremarkable except for what appears like a semilunar density seen in the upper/outer aspect of the left orbit that may be postsurgical. Correlate can correlation with CT scan of the orbits could be obtained. No suspicious bone marrow abnormal signal is identified. Impression: Moderate atrophy and moderate to marked chronic microvascular ischemic disease changes. Multiple bilateral cerebellar lacunar infarcts as well as a lacunar infarct in the right splenium, right occipital and right parietal lobe. Larger focus of acute/subacute infarct in the right frontal lobe at the level of the medeiros radiata and centrum semiovale measuring 2.5 x 1.8 cm. No gross mass lesion or intracranial hemorrhage identified. Focal semilunar abnormal signal intensity seen superior lateral aspect of the left orbit that may be post op. Correlate clinically and if needed correlation with CT scan of the orbits could be obtained for further evaluation. EKG inverted P waves, ?ectopic atrial rhythm, LVH O/E- awake, alert, no change in neurologic exam, has left cent.facial and RUE is 4+/5 A&P: Given multiplicity of infarcts in different vascular territories and possible atrial arrhythmia cardioembolic phenomenon likely. Would cont. ASA for now, cont. card w/u, carotid ultrasound. Will follow, Thank you, Nelson Baum MD.
--- NOTE | 2017-11-01 13:04 | PN ---
Teaching Attending Note Name of Resident: Campbell Elam ATTENDING PHYSICIAN STATEMENT I saw and evaluated the patient. I reviewed the resident's note and discussed the case with the resident. I agree with the resident's findings and plan as documented. SUBJECTIVE:continues to feel like speech is garbled. diffuse body aches and pain worse on movement. denies CP, SOB, fever, chills, N/V/C/D, no increased weakness or numbness on 1 side of the body OBJECTIVE: Last Vital Signs Temp Pulse Resp BP Pulse Ox 97.9 F 64 20 130/74 96 11/01/17 05:00 11/01/17 05:00 11/01/17 05:00 11/01/17 05:00 10/31/17 22:00 general NAD cv S1 S2 RRR neuro L facial droop. sensation and motor intact within the CN. strength 5/5 B/ L UE. 2/5 B/L LE. sensation grossly intact. negative pronator drift. refused to stand at this time. speech is fluid, responds appropriately ASSESSMENT AND PLAN: 72yo F with PMH ESRD on HD, HTN, angina, DM and OA presented for elective TKR 10/25 and course was complicated by post-op hypotension, acute blood loss anemia and CVA. 1. Acute/subacute right frontal lobe CVA, Multiple lacunar infarcts in bilateral cerebellum/right splenium/right occipital/parietal lobe, likely embolic CVA- slight facial droop. no events noted on monitor but high suspicion for afib. echo pending. carotid doppler negative for significant disease but should have repeat carotid doppler in 3 months. on full dose asa, will increase statin to high intensity. neuro on board. speech pathologist and PT. will need cardio follow up as outpatient for possible loop recorder if no events seen here on monitor 2. Hypotension- check orthostatics. will reduce metoprolol and monitor closely. 3. acute blood loss anemia- s/p 1 unit PRBC. Hgb been low but stable. FOBT negative. will check iron studies. no indication for txn at this time 4. Osteoarthritis s/p elective TKR 10/25/2017- further managment per ortho. will need full dose asa for 4 weeks. PT on discharge 5. NIDDM- hold oral agents. cont BGM, iss 6. ESRD On HD- cont per normal schedule. on phoslo/cinacelet 7. hypothyroid- on LT4 8. DVT ppx- HERIBERTO. start hep sq tomorrow if hgb remains stable 9.. will need BALTAZAR on discharge.
--- NOTE | 2017-11-01 13:15 | CONS ---
DATE OF CONSULTATION: DATE OF DICTATION: 11/01/2017 REQUESTING PHYSICIAN: Hospitalist service. CHIEF COMPLAINT: Stroke, cardiovascular evaluation. A 72-year-old female of descent, with known history of probable coronary artery disease; angina pectoris; diastolic left ventricular dysfunction with class 0 [place] [employer] classification left ventricular failure; hypertensive cardiovascular disease; diabetes mellitus; hypercholesterolemia; end-stage renal disease on hemodialysis; glaucoma with blindness, right eye; advanced degenerative joint disease, post right knee replacement surgery, who was admitted electively to [facility] October 25, 2017, for total left knee replacement arthroplasty. The above-noted surgical procedure was performed without any complications, and patient on Tuesday night complained of abnormal bite and left facial droop. Further evaluation of which was performed including MRI of the brain which revealed evidence of an acute stroke, in addition revealed evidence of multiple infarcts. Patient does not report any prior history of paroxysmal atrial fibrillation. Patient denies any chest discomfort. Patient denies any dyspnea, orthopnea, paroxysmal nocturnal dyspnea, or peripheral edema. Patient denies any palpitations, dizziness, lightheadedness, or syncope. Patient denies any fatigue or tiredness. PAST MEDICAL HISTORY: Probable coronary artery disease; angina pectoris; diastolic left ventricular dysfunction with class 0 [place] [employer] classification left ventricular failure; hypertensive cardiovascular disease; diabetes mellitus; hypercholesterolemia; glaucoma; legally blind, right eye; corneal opacification; end-stage renal disease on hemodialysis; degenerative joint disease, post total right knee replacement surgery and post recent left total knee replacement surgery. SOCIAL HISTORY: Denies smoking. FAMILY HISTORY: Brother has coronary artery disease. ALLERGIES: None reported. MEDICAL THERAPY AT HOME: Was noted. MEDICAL THERAPY: Currently includes aspirin 325 mg once a day, Lipitor 20 mg once a day, calcium acetate 3 times a day, senna 60 mg once a day, insulin as prescribed, levothyroxine 50 mcg once daily for hypothyroidism, Toprol-XL 50 mg once a day, multivitamin 1 tablet once a day, Zofran 4 mg IV push every 6 hours as needed, Protonix 40 mg once a day, paroxetine 20 mg once a day. REVIEW OF SYSTEMS: Head and Neck: Denies headache, photophobia, blurring of vision. Respiratory: No cough or sputum production. Cardiovascular: As noted above. Gastrointestinal: Denies nausea, vomiting, diarrhea, abdominal discomfort. Genitourinary: No symptoms reported. Musculoskeletal: Joint discomfort. PHYSICAL EXAMINATION: Vital Signs: Blood pressure is 130/74 mmHg. Pulse rate is 64 beats per minute. Head and Neck: Pupils equal, reactive to light and accommodation. Extraocular muscles are intact. Anicteric sclerae. Negative JVD. No bruit appreciated. Chest: Clear to auscultation and percussion. Cardiovascular: S1 and S2 regular. A grade 1-2/6 systolic ejection murmur. No clicks or gallops. Abdomen: Soft, benign. Normoactive bowel sounds. Extremities: Trace edema. Intact distal pulses. No calf tenderness. Left upper extremity AV graft was noted. LABORATORY DATA: CBC revealed white cell count 6.7, hemoglobin 7.4, platelet count 211. Basic metabolic profile revealed sodium 137, potassium 4.5, BUN of 50, creatinine 11.0, glucose 68. Carotid Doppler study report was noted. MRI of the brain report was noted. EKG not available in the chart. ASSESSMENT: 1. Acute stroke with evidence of multiple embolic infarcts on MRI of the brain. 2. Probable coronary artery disease with no clinical angina pectoris. 3. Probable diastolic left ventricular dysfunction with class 0 [place] [employer] classification left ventricular failure. 4. Hypertensive cardiovascular disease. 5. Diabetes mellitus. 6. Hypercholesterolemia. 7. Carotid stenosis, moderate in severity. 8. Hypothyroidism. 9. End-stage renal disease on hemodialysis. 10. Degenerative joint disease, post recent left knee arthroplasty, prior history of right knee arthroplasty. 11. Anemia. 12. Glaucoma with right eye blindness. RECOMMENDATION: 1. Continuation of Toprol-XL. 2. Recommend resumption of angiotensin receptor eneida unless it is absolutely contraindicated. 3. Continue Lipitor. 4. Continue aspirin for now pending further evaluation. 5. Echocardiography for evaluation of LV and RV systolic function and valvular function. 6. Patient may require transesophageal echocardiography for further evaluation of source of embolism. 7. Recommend outpatient extended monitor or implantable loop recorder for evaluation of possible paroxysmal atrial fibrillation as the culprit for the above-noted embolic event noted on MRI of the brain. Thank you for the kind referral. INDY SIFUENTES M.D. [id number]
--- NOTE | 2017-11-01 16:27 | PN ---
Physical Exam: SUBJECTIVE: Patient seen and examined at bedside. Pt states she has difficulty with lip-biting. No other complaints. OBJECTIVE: Vital Signs Period Temp Pulse Resp BP Sys/Palacios Pulse Ox Last 24 Hr 97.7 F-98.5 F 16-117 20-20 98-148/56-97 96-96 Gen: Lying in bed, NAD HEENT: NCAT, EOMI, no droop appreciated Neck: supple, no jvd, no bruits Cardiac: RRR, s1s2, 2/6 systolic crescendo-decrescendo murmur loudest at RUSB ( soft S1 at RUSB) Pulm: CTA b/l Abd: soft, nontender, no guarding Ext: 2+ pulses, no edema. L knee wound dressing cdi Neuro: no dysarthria, manager fleet 5/5, biceps flexion/extension 5/5, R hip flexion 5/5 , b/l plantar flexion 5/5. Sensation equal and intact throughout Laboratory Results - last 24 hr 10/31/17 10/31/17 11/01/17 17:21 22:43 05:49 WBC RBC Hgb Hct MCV MCH MCHC RDW Plt Count MPV Sodium Potassium Chloride Carbon Dioxide Anion Gap BUN Creatinine Creat Clearance w eGFR POC Glucometer 127 114 82 Random Glucose Calcium Phosphorus Magnesium Total Bilirubin AST ALT Alkaline Phosphatase Total Protein Albumin Triglycerides Cholesterol Total LDL Cholesterol HDL Cholesterol 11/01/17 11/01/17 11/01/17 06:22 06:22 12:06 WBC 6.7 RBC 2.21 L Hgb 7.4 L Hct 21.6 L MCV 97.8 H MCH 33.4 MCHC 34.2 RDW 15.1 Plt Count 211 MPV 8.1 Sodium 137 Potassium 4.5 Chloride 99 Carbon Dioxide 28 Anion Gap 10 BUN 50 H Creatinine 11.0 H* Creat Clearance w eGFR 3.42 POC Glucometer 61 Random Glucose 68 L Calcium 8.8 Phosphorus 5.2 H Magnesium 2.1 Total Bilirubin 0.4 AST 11 L ALT 6 L Alkaline Phosphatase 60 Total Protein 5.8 L Albumin 2.3 L Triglycerides 103 Cholesterol 131 Total LDL Cholesterol 75 HDL Cholesterol 41 11/01/17 13:41 WBC RBC Hgb Hct MCV MCH MCHC RDW Plt Count MPV Sodium Potassium Chloride Carbon Dioxide Anion Gap BUN Creatinine Creat Clearance w eGFR POC Glucometer 68 Random Glucose Calcium Phosphorus Magnesium Total Bilirubin AST ALT Alkaline Phosphatase Total Protein Albumin Triglycerides Cholesterol Total LDL Cholesterol HDL Cholesterol Active Medications Generic Name Dose Route Start Last Admin Trade Name Freq PRN Reason Stop Dose Admin Al Hydroxide/Mg Hydroxide 30 ml 11/01/17 07:46 Mylanta Oral Suspension - PO Q4H PRN DYSPEPSIA Aspirin 325 mg 11/01/17 08:00 11/01/17 10:05 Asa - PO 325 mg DAILY@0800 [facility] Administration Atorvastatin Calcium 40 mg 11/01/17 22:00 Lipitor - PO HS [facility] Calcium Acetate 1,334 mg 11/01/17 08:00 11/01/17 12:42 Phoslo - PO Not Given TIDCM [facility] Cinacalcet 60 mg 11/01/17 10:00 11/01/17 12:43 Sensipar - PO 60 mg DAILY [facility] Administration Sodium Chloride 1,000 mls @ 42 mls/hr 10/31/17 19:45 10/31/17 22:39 Normal Saline - IV 42 mls/hr ASDIR [facility] Administration Insulin Aspart 1 vial 11/01/17 11:00 11/01/17 12:07 Novolog Vial Sliding Scale - SQ Not Given ACHS [facility] Protocol Levothyroxine Sodium 50 mcg 11/02/17 07:00 Synthroid - PO DAILY@0700 [facility] Magnesium Hydroxide 30 ml 11/01/17 07:46 Milk Of Magnesia - PO PRN PRN CONSTIPATION Metoprolol Succinate 25 mg 11/01/17 22:00 Toprol Xl - PO [facility] Multivitamins/Minerals/Vitamin C 1 tab 11/01/17 10:00 11/01/17 12:40 Tab-A-Vit - PO 1 tab DAILY [facility] Administration Non-Formulary Medication 1 drop 11/01/17 10:00 Bimatoprost [Lumigan] OU BID [facility] Non-Formulary Medication 8 ml 11/01/17 10:00 Brinzolamide/Brimonidine Tart [Simbrinza 1%-0.2% Eye Drops] OD DAILY [facility] Ondansetron HCl 4 mg 11/01/17 07:46 Zofran Injection IVPUSH Q6H PRN NAUSEA AND/OR VOMITING Pantoprazole Sodium 40 mg 11/01/17 10:00 11/01/17 12:42 Protonix - PO 40 mg DAILY [facility] Administration Paroxetine HCl 20 mg 11/01/17 10:00 11/01/17 12:41 Paxil - PO 20 mg DAILY [facility] Administration Senna/Docusate Sodium 2 tablet 11/01/17 10:00 11/01/17 12:40 Pericolace - PO 2 tablet BID [facility] Administration ASSESSMENT/PLAN: Patient is a 72 year old female with significant past medical hx of DM, HTN, ESRD on HD, OA, Angina came in to [facility] for an elective Left knee replacement on 10/25/2017 found to have acute/subacute stroke. # Acute vs Subacute stroke -initial NIH stroke scale-4 -c/o facial droop, left sided weakness -MRI showed multiple bilateral cerebellar lacunar infarcts as well as a lacunar infarct in the right splenium, right occipital and right parietal lobe. -Monitoring -Patient is not a candidate for a tPA (out of window and patient is anemic with recent h/o BT) -per neuro cont Asa, statin. No MRA -Bed side trial of sips followed by Speech and swallow eval in the morning. If she tolerates sips of water will place her on Dysphagia puree diet -EKG attached in the chart -ECHO -Carotid doppler -duplex of lower ext ordered -Cardio consulted -Seen by speech and swallow -MBS # Hypertension -Diovan with holding parameters # End-stage renal disease on HD TTS -Last HD was done on Sat -HD today -strict intake and output # Diabetes Mellitus -Januvia -BGM ACHS -ISS # Hypothyroidism -synthroid # FEN -NS -lytes WNL -NPO except meds # Prophylaxis -scds # Code Status: Full Code Dispo: We will continue to follow the patient. Thank you for this consultative opportunity. Visit type - Emergency Visit Emergency Visit: No - New Patient This patient is new to me today: No - Critical Care Critical Care patient: No - Discharge Referral Referred to [facility] No
--- NOTE | 2017-11-01 16:55 | PN ---
Progress Note (short form) - Note Progress Note: RENAL 72 WITH HTN DM ESRD S/P LEFT KNEE REPLACEMENT ON LAST WEEK DIALYZED SAT SEEN MON AM FOUND TO CLINICALLY HAVE A STROKE MRI SHOWS MULTIPLE INFARCTS SUGGESTIVE OF EMBOLI ECHO DONE RESULTS P NOT IN AFIB NOW SEEN BY CARDIO ON METOPROLOL BP TOO LOW CANT ADD DAVIS CAROTID DOPPLERS SHOW PLAQUE SEEN AT HD HIPS 20NR 3 HR K2 CA2.5 [facility] 1 KG TOLERATED EPO 20K STOOL OB NEG HB 7.6 NEEDS PT SWALLOW REPORT NOTED
[2017-11-01] MEDS ORDERED: [UNRECOGNIZED DRUG - OTHER] OU SCH (17:30)
[2017-11-01] MEDS ORDERED: EPOETIN ALFA 20,000 UNIT/1 ML VIAL IVPUSH ONE (17:45)
[2017-11-01] MEDS ORDERED: oxyCODONE HCL 5 MG TABLET PO ONE (19:08)
[2017-11-01] MEDS ORDERED: ATORVASTATIN CA 20 MG TABLET (FP) PO SCH (22:00)
[2017-11-01] MEDS: metoPROLOL SUCCINATE 25 MG TAB.SR.24H (FP) PO SCH (22:46)
[2017-11-01] MEDS: ATORVASTATIN CA 40 MG TABLET (FP) PO SCH (22:50)
[2017-11-01] MEDS: TIMOLOL OU SCH (22:51)
[2017-11-01] MEDS: [UNRECOGNIZED DRUG - OTHER] OU SCH (22:51)
[2017-11-01] MEDS: [UNRECOGNIZED DRUG - OTHER] OU SCH (22:51)
[2017-11-01] MEDS: BRIMONIDINE TARTRATE OU SCH (22:51)
[2017-11-02] MEDS: INSULIN SLIDING SCALE (NOVOLOG) 1 VIAL SQ SCH ×4 (06:40→22:25)
[2017-11-02] MEDS: LEVOTHYROXINE NA 50 MCG TABLET (FP) PO SCH (06:40)
[2017-11-02] MEDS ORDERED: INSULIN (NOVOLOG) ASPART 100 UNITS/ML 10ML VIAL ONE (06:51)
[2017-11-02 08:24] LABS: BASO % 0.8 % (0-2.0); EOS % 3.1 % (0-4.5); HEMATOCRIT 21.5 % (32.4-45.2); HEMOGLOBIN 7.1 GM/dL (10.7-15.3); LYMPH % 20.9 % (8-40); MCH 32.5 pg (25.7-33.7); MCHC 32.9 g/dl (32.0-36.0); MEAN CELL VOLUME 98.5 fl (80-96); MEAN PLT VOLUME 8.1 fl (7.5-11.1); NEUT % 61.2 % (42.8-82.8); PLATELET COUNT 258 K/MM3 (134-434); RBC 2.18 M/mm3 (3.60-5.2); RDW 15.1 % (11.6-15.6); WHITE BLOOD COUNT 7.5 K/mm3 (4.0-10.0)
[2017-11-02 08:50] LABS: ALBUMIN 2.5 g/dl (3.4-5.0); ANION GAP 6 (8-16); BLOOD UREA NITROGEN 25 mg/dL (7-18); CALCIUM 8.4 mg/dL (8.5-10.1); CHLORIDE 98 mmol/L (98-107); CO2 35 mmol/L (21-32); CREATININE 6.8 mg/dL (0.55-1.02); GLUCOSE,RANDOM 99 mg/dL (74-106); PHOSPHOROUS 2.7 mg/dL (2.5-4.9); POTASSIUM 3.9 mmol/L (3.5-5.1); SGOT/AST 16 U/L (15-37); SGPT/ALT 6 U/L (12-78); SODIUM 139 mmol/L (136-145)
[2017-11-02 08:52] LABS: ALK PHOS 80 U/L (45-117); BILIRUBIN,TOTAL 0.4 mg/dL (0.2-1.0); TOT PROT 6.4 g/dl (6.4-8.2)
[2017-11-02] MEDS ORDERED: PARoxetine HCL 10 MG TABLET (FP) ONE (09:23)
[2017-11-02] MEDS: MULTIVITAMINS (DAILY MVI) TABLET (FP) PO SCH (09:49)
[2017-11-02] MEDS: ASPIRIN 325 MG TABLET PO SCH (09:49)
[2017-11-02] MEDS: PANTOPRAZOLE 40 MG TABLET (FP) PO SCH (09:49)
[2017-11-02] MEDS: CALCIUM ACETATE 667 MG CAPSULE (FP) PO SCH ×3 (09:49→17:11)
[2017-11-02] MEDS: [UNRECOGNIZED DRUG - OTHER] OU SCH ×2 (09:50→22:26)
[2017-11-02] MEDS: TIMOLOL OU SCH ×2 (09:50→22:26)
[2017-11-02] MEDS: BRIMONIDINE TARTRATE OU SCH ×2 (09:50→22:26)
[2017-11-02] MEDS: PARoxetine HCL 20 MG TABLET (FP) PO SCH (09:50)
[2017-11-02] MEDS: [UNRECOGNIZED DRUG - OTHER] OU SCH ×2 (09:51→22:26)
[2017-11-02] MEDS: CINACALCET HCL 30 MG TAB (FP) PO SCH (09:51)
[2017-11-02] MEDS: SENNOSIDES/DOCUSATE COMBO (SENNA PLUS) TABLET (UD) PO SCH ×2 (09:51→22:25)
--- NOTE | 2017-11-02 10:39 | PN ---
Progress Note (short form) - Note Progress Note: AVSS COMFORTABLE INCISION CLEAN AND DRY CALF SOFT AND NT NVI AROM 0-95 + STRAIGHT LEG RAISE ABILITY IMP: DOING WELL PLAN: OOB,PT, ROM AND WBAT, DC TO SNF WHEN MEDICALLY OK
[2017-11-02 11:06] LABS: ANISOCYTOSIS 1+; MACROCYTOSIS 1+; OVALOCYTE 1+; PLATELET ESTIMATE NORMAL
--- NOTE | 2017-11-02 11:31 | PN ---
Progress Note, Physician History of Present Illness: Left sided facial and arm weakness improving, likely new R subcortical vs R MCA stroke, telemetry shows PAC without PAF thus far. - Current Medication List Current Medications: Active Medications Al Hydroxide/Mg Hydroxide (Mylanta Oral Suspension -) 30 ml PO Q4H PRN PRN Reason: DYSPEPSIA Aspirin (Asa -) 325 mg PO DAILY@0800 [facility] Last Admin: 11/02/17 09:49 Dose: 325 mg Atorvastatin Calcium (Lipitor -) 40 mg PO [facility] Last Admin: 11/01/17 22:50 Dose: 40 mg Calcium Acetate (Phoslo -) 1,334 mg PO TIDCM [facility] Last Admin: 11/02/17 09:49 Dose: 1,334 mg Cinacalcet (Sensipar -) 60 mg PO DAILY [facility] Last Admin: 11/02/17 09:51 Dose: 60 mg Insulin Aspart (Novolog Vial Sliding Scale -) 1 vial SQ [facility]; Protocol Last Admin: 11/02/17 06:40 Dose: 2 units Levothyroxine Sodium (Synthroid -) 50 mcg PO DAILY@0700 [facility] Last Admin: 11/02/17 06:40 Dose: 50 mcg Metoprolol Succinate (Toprol Xl -) 25 mg PO [facility] Last Admin: 11/01/17 22:46 Dose: Not Given Multivitamins/Minerals/Vitamin C (Tab-A-Vit -) 1 tab PO DAILY [facility] Last Admin: 11/02/17 09:49 Dose: 1 tab Ptnt's Own Med( Brimonidine Tartrate /Timolol [Combigan 0 .2%-0.5% 1 drop OU BID [facility] Last Admin: 11/02/17 09:50 Dose: 1 drop Ptnt's Own Med ( Bimatoprost [Lumigan ] 1 Drop) 1 drop OU BID [facility] Last Admin: 11/02/17 09:51 Dose: 1 drop Ondansetron HCl (Zofran Injection) 4 mg IVPUSH Q6H PRN PRN Reason: NAUSEA AND/OR VOMITING Pantoprazole Sodium (Protonix -) 40 mg PO DAILY [facility] Last Admin: 11/02/17 09:49 Dose: 40 mg Paroxetine HCl (Paxil -) 20 mg PO DAILY [facility] Last Admin: 11/02/17 09:50 Dose: 20 mg Senna/Docusate Sodium (Pericolace -) 2 tablet PO BID [facility] Last Admin: 11/02/17 09:51 Dose: Not Given - Objective Vital Signs: Vital Signs Temperature 98.6 F 11/02/17 09:45 Pulse Rate 63 11/02/17 09:45 Respiratory Rate 18 11/02/17 09:45 Blood Pressure 136/72 11/02/17 09:45 O2 Sat by Pulse Oximetry (%) 98 11/01/17 21:00 Constitutional: Yes: No Distress, Calm Neck: Yes: Supple Cardiovascular: Yes: Regular Rate and Rhythm Respiratory: Yes: Regular, CTA Bilaterally Gastrointestinal: Yes: Normal Bowel Sounds, Soft, Abdomen, Obese Edema: No Neurological: Yes: Facial Droop, Weakness Labs: CBC, BMP 11/02/17 08:00 11/02/17 08:00 - ....Imaging EKG: Report Reviewed (Tele: SR with PAC) Problem List - Problems (1) End stage renal disease Code(s): N18.6 - END STAGE RENAL DISEASE (2) Premature atrial contraction Code(s): I49.1 - ATRIAL PREMATURE DEPOLARIZATION (3) CVA (cerebral vascular accident) Code(s): I63.9 - CEREBRAL INFARCTION, UNSPECIFIED Qualifiers: CVA mechanism: embolism Laterality of affected vessel: bilateral (4) History of knee replacement procedure of left knee Code(s): Z96.652 - PRESENCE OF LEFT ARTIFICIAL KNEE JOINT (5) Hypertension Code(s): I10 - ESSENTIAL (PRIMARY) HYPERTENSION Qualifiers: Hypertension type: essential hypertension Qualified Code(s): I10 - Essential (primary) hypertension (6) Hypothyroidism Code(s): E03.9 - HYPOTHYROIDISM, UNSPECIFIED Qualifiers: Hypothyroidism type: unspecified Qualified Code(s): E03.9 - Hypothyroidism , unspecified (7) Anemia Code(s): D64.9 - ANEMIA, UNSPECIFIED Qualifiers: Anemia type: due to chronic kidney disease Chronic kidney disease stage: on chronic dialysis Qualified Code(s): N18.6 - End stage renal disease; D63.1 - Anemia in chronic kidney disease; Z99.2 - Dependence on renal dialysis (8) Diastolic dysfunction Code(s): I51.9 - HEART DISEASE, UNSPECIFIED Assessment/Plan Echo 11/01/2017 Normal LV and RV size and fxn, mod LAE, mild MR, AR, tr TR, FL 1. Acute stroke with evidence of multiple embolic infarcts on MRI of the brain 2. Premature atrial contractions without paroxysmal atrial fibrillation thus far 3. Diastolic dysfunction 4. Hypertensive cardiovascular disease 5. DM 6. Hypercholestrolemia 7. Hypothyroidism 8. Carotid stenosis 9. ESRD on HD 10. DJD post recent left knee arthroplasty, prior history of right knee arthroplasty 11. Anemia of renal disease 12. Glaucoma with right eye blindness PLAN: 1. Continue Toprol XL 25 qhs 2. Recommend resumption of ARBS unless it is absolutely contraindicated 3. Continue Lipitor 40 qhs 4. Continue ASA 325 qd for now, pending further evaluation for PAF 5. Patient may require MOLLY for further evaluation of source of embolism 6. Recommend outpatient extended monitor or ILR for evaluation of possible PAF as culprit to the above noted embolic events on brain MRI, check EKG 7. PT->SNF
--- NOTE | 2017-11-02 11:42 | PN ---
Teaching Attending Note Name of Resident: Campbell Elam ATTENDING PHYSICIAN STATEMENT I saw and evaluated the patient. I reviewed the resident's note and discussed the case with the resident. I agree with the resident's findings and plan as documented. SUBJECTIVE:uncomfortable sitting in the bed but no other complaints. no increased weakness or numbness on one side of the body or other. denies CP, SOB , fever, chills, N/V/c/D OBJECTIVE: Last Vital Signs Temp Pulse Resp BP Pulse Ox 98.6 F 63 18 136/72 98 11/02/17 09:45 11/02/17 09:45 11/02/17 09:45 11/02/17 09:45 11/01/17 21:00 general NAD cv S1 S2 RRR neuro fluid speech. L facial droop. sensation and motor intact within the CN. strength 5/5 B/L UE. 2/5 B/L LE. sensation grossly intact. ASSESSMENT AND PLAN: 72yo F with PMH ESRD on HD, HTN, angina, DM and OA presented for elective TKR 10/25 and course was complicated by post-op hypotension, acute blood loss anemia and CVA. 1. Acute/subacute right frontal lobe CVA, Multiple lacunar infarcts in bilateral cerebellum/right splenium/right occipital/parietal lobe, likely embolic CVA- slight facial droop. no afib on the monitor only PAC noted. echo reviewed. dilated LA. will need arrythmia monitor and MOLLY as outpatient. cont high intensity statin. full dose asa then reduce to 81mg after 4 weeks. will need both cardio and neuro follow up as outpatient. no events noted on monitor 2. Hypotension- orthostatics negative. less periods of hypotension. 3. acute blood loss anemia- s/p 1 unit PRBC. Hgb been low but stable. FOBT negative. iron studies pending. no indication for txn at this time 4. Osteoarthritis s/p elective TKR 10/25/2017- further management per ortho. will need full dose asa for 4 weeks. PT on discharge 5. NIDDM- hold oral agents. cont BGM, iss 6. ESRD On HD- cont per normal schedule. on phoslo/cinacelet 7. hypothyroid- on LT4 8. DVT ppx- HERIBERTO. start hep sq tomorrow if hgb remains stable 9. 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
--- NOTE | 2017-11-02 13:49 | PN ---
Physical Exam: SUBJECTIVE: Patient seen and examined at bedside. No complaints at this time. OBJECTIVE: Vital Signs Period Temp Pulse Resp BP Sys/Palacios Pulse Ox Last 24 Hr 97.1 F-98.8 F 16-117 18-62 87-148/54-97 96-98 Gen: Lying in bed, NAD HEENT: NCAT, EOMI, no droop appreciated Neck: supple, no jvd, no bruits Cardiac: RRR, s1s2, 2/6 systolic crescendo-decrescendo murmur loudest at RUSB ( soft S1 at RUSB) Pulm: CTA b/l Abd: soft, nontender, no guarding Ext: 2+ pulses, no edema. 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 Sensation equal and intact throughout Laboratory Results - last 24 hr 11/01/17 11/01/17 11/01/17 13:41 17:34 22:48 WBC RBC Hgb Hct MCV MCH MCHC RDW Plt Count MPV Absolute Neuts (auto) Neutrophils % Neutrophils % (Manual) Band Neutrophils % Lymphocytes % Lymphocytes % (Manual) Monocytes % Monocytes % (Manual) Eosinophils % Eosinophils % (Manual) Basophils % Basophils % (Manual) Myelocytes % (Man) Promyelocytes % (Man) Blast Cells % (Manual) Nucleated RBC % Metamyelocytes Platelet Estimate Polychromasia Anisocytosis Macrocytosis Ovalocytes Stomatocytes Sodium Potassium Chloride Carbon Dioxide Anion Gap BUN Creatinine Creat Clearance w eGFR POC Glucometer 68 160 95 Random Glucose Calcium Phosphorus Magnesium Ferritin Total Bilirubin AST ALT Alkaline Phosphatase Total Protein Albumin 11/02/17 11/02/17 11/02/17 05:49 08:00 08:00 WBC 7.5 RBC 2.18 L Hgb 7.1 L Hct 21.5 L MCV 98.5 H MCH 32.5 MCHC 32.9 RDW 15.1 Plt Count 258 D MPV 8.1 Absolute Neuts (auto) 4.6 Neutrophils % 61.2 Neutrophils % (Manual) 60.8 Band Neutrophils % 1.9 Lymphocytes % 20.9 Lymphocytes % (Manual) 20.6 Monocytes % 14.0 H Monocytes % (Manual) 9 Eosinophils % 3.1 Eosinophils % (Manual) 4.9 H Basophils % 0.8 Basophils % (Manual) 1.0 Myelocytes % (Man) 0 Promyelocytes % (Man) 0 Blast Cells % (Manual) 0 Nucleated RBC % 0 Metamyelocytes 2 Platelet Estimate Normal Polychromasia 1+ Anisocytosis 1+ Macrocytosis 1+ Ovalocytes 1+ Stomatocytes 1+ Sodium 139 Potassium 3.9 Chloride 98 Carbon Dioxide 35 H Anion Gap 6 L BUN 25 H D Creatinine 6.8 H Creat Clearance w eGFR 5.95 POC Glucometer 137 Random Glucose 99 Calcium 8.4 L Phosphorus 2.7 Magnesium 2.0 Ferritin 1472.1 H Total Bilirubin 0.4 AST 16 ALT 6 L Alkaline Phosphatase 80 Total Protein 6.4 Albumin 2.5 L 11/02/17 11/02/17 08:00 11:33 WBC RBC Hgb Hct MCV MCH MCHC RDW Plt Count MPV Absolute Neuts (auto) Neutrophils % Neutrophils % (Manual) Band Neutrophils % Lymphocytes % Lymphocytes % (Manual) Monocytes % Monocytes % (Manual) Eosinophils % Eosinophils % (Manual) Basophils % Basophils % (Manual) Myelocytes % (Man) Promyelocytes % (Man) Blast Cells % (Manual) Nucleated RBC % Metamyelocytes Platelet Estimate Polychromasia Anisocytosis Macrocytosis Ovalocytes Stomatocytes Sodium Potassium Chloride Carbon Dioxide Anion Gap BUN Creatinine Creat Clearance w eGFR POC Glucometer 116 Random Glucose Calcium Phosphorus Magnesium Ferritin Cancelled Total Bilirubin AST ALT Alkaline Phosphatase Total Protein Albumin Active Medications Generic Name Dose Route Start Last Admin Trade Name Freq PRN Reason Stop Dose Admin Al Hydroxide/Mg Hydroxide 30 ml 11/01/17 07:46 Mylanta Oral Suspension - PO Q4H PRN DYSPEPSIA Aspirin 325 mg 11/01/17 08:00 11/02/17 09:49 Asa - PO 325 mg DAILY@0800 LEE Administration Atorvastatin Calcium 40 mg 11/01/17 22:00 11/01/17 22:50 Lipitor - PO 40 mg HS LEE Administration Calcium Acetate 1,334 mg 11/01/17 08:00 11/02/17 11:58 Phoslo - PO 1,334 mg TIDCM LEE Administration Cinacalcet 60 mg 11/01/17 10:00 11/02/17 09:51 Sensipar - PO 60 mg DAILY LEE Administration Insulin Aspart 1 vial 11/01/17 11:00 11/02/17 11:34 Novolog Vial Sliding Scale - SQ 2 units ACHS LEE Administration Protocol Levothyroxine Sodium 50 mcg 11/02/17 07:00 11/02/17 06:40 Synthroid - PO 50 mcg DAILY@0700 LEE Administration Metoprolol Succinate 25 mg 11/01/17 22:00 11/01/17 22:46 Toprol Xl - PO Not Given HS LEE Multivitamins/Minerals/Vitamin C 1 tab 11/01/17 10:00 11/02/17 09:49 Tab-A-Vit - PO 1 tab DAILY LEE Administration Ptnt's Own Med( 1 drop 11/01/17 22:00 11/02/17 09:50 Brimonidine Tartrate OU 1 drop /Timolol [Combigan 0 BID LEE Administration .2%-0.5% Ptnt's Own Med ( 1 drop 11/01/17 22:00 11/02/17 09:51 Bimatoprost [Lumigan OU 1 drop ] 1 Drop) BID LEE Administration Ondansetron HCl 4 mg 11/01/17 07:46 Zofran Injection IVPUSH Q6H PRN NAUSEA AND/OR VOMITING Pantoprazole Sodium 40 mg 11/01/17 10:00 11/02/17 09:49 Protonix - PO 40 mg DAILY LEE Administration Paroxetine HCl 20 mg 11/01/17 10:00 11/02/17 09:50 Paxil - PO 20 mg DAILY LEE Administration Senna/Docusate Sodium 2 tablet 11/01/17 10:00 11/02/17 09:51 Pericolace - PO Not Given BID LEE ASSESSMENT/PLAN: Patient is a 72 year old female with significant past medical hx of DM, HTN, ESRD on HD, OA, Angina came in to [facility] for an elective Left knee replacement on 10/25/2017 found to have acute/subacute stroke. # Acute vs Subacute stroke -initial NIH stroke scale-4 -c/o facial droop, left sided weakness -MRI showed multiple bilateral cerebellar lacunar infarcts as well as a lacunar infarct in the right splenium, right occipital and right parietal lobe. -Monitoring -Patient is not a candidate for a tPA (out of window and patient is anemic with recent h/o BT) -per neuro cont Asa, statin. No MRA -Speech and swallow: MBS -> dysphagia chopped -EKG, no afib -ECHO (bubble study): E/A reversal, dilated LA -Carotid doppler neg -duplex of lower ext ordered -Cardio consulted: no afib documented, therefore, no AC. May need MOLLY &/or event monitor as an out pt -Seen by speech and swallow -MBS # Hypertension -Diovan with holding parameters -Held metoprolol -had been hypotensive. Orthostatics negative #End-stage renal disease on HD TTS -Last HD was done on Sat -HD today -strict intake and output #normocytic anemia ? Fe defic -FOBT negative -Fe studies pending #Diabetes Mellitus -Januvia -BGM ACHS -ISS # Hypothyroidism -synthroid # FEN -NS -lytes WNL -NPO except meds # Prophylaxis -scds # Code Status: Full Code Dispo: We will continue to follow the patient. Thank you for this consultative opportunity. Visit type - Emergency Visit Emergency Visit: No - New Patient This patient is new to me today: No - Critical Care Critical Care patient: No - Discharge Referral Referred to [facility] No
--- NOTE | 2017-11-02 14:31 | PN ---
Progress Note, BENDING ROLL HAND - Note Progress Note: Selected Entries 11/01/17 11/01/17 11/01/17 01:00 05:00 09:00 Breakfast Temperature 98.5 F 97.9 F 97.7 F 11/01/17 11/01/17 11/01/17 14:15 17:49 21:00 Breakfast Temperature 98.0 F 97.1 F L 98.2 F 11/02/17 11/02/17 11/02/17 01:48 05:58 09:45 Breakfast Temperature 98.8 F 98.6 F 98.6 F 11/02/17 11:37 Breakfast 75% Temperature Laboratory Tests 11/02/17 08:00 WBC 7.5 Tolerating diet without signs of difficulty observed. Rec: continue chopped and add 1-2 soft items. Thin liquid- Observe tolerance.
--- NOTE | 2017-11-02 15:03 | EKG ---
Test Reason : Blood Pressure : / mmHG Vent. Rate : 061 BPM Atrial Rate : 061 BPM P-R Int : 210 ms QRS Dur : 090 ms QT Int : 478 ms P-R-T Axes : 046 000 -29 degrees QTc Int : 481 ms SINUS RHYTHM WITH 1ST DEGREE A-V BLOCK WITH PREMATURE ATRIAL COMPLEXES NONSPECIFIC T WAVE ABNORMALITY PROLONGED QT ABNORMAL ECG WHEN COMPARED WITH ECG OF 31-OCT-2017 19:12, SINUS RHYTHM HAS REPLACED ECTOPIC ATRIAL RHYTHM Confirmed by GINNY KELLEY MD ([id number]) on 11/02/2017 3:03:29 PM Referred By: Alex Young Confirmed By:GINNY KELLEY MD
[2017-11-02 15:31] VITALS: BMI 34.2
[2017-11-02] MEDS ORDERED: traMADol HCL 50 MG TABLET PO ONE ×2 (18:45→19:00)
[2017-11-02] MEDS: ATORVASTATIN CA 40 MG TABLET (FP) PO SCH (22:25)
[2017-11-02] MEDS: metoPROLOL SUCCINATE 25 MG TAB.SR.24H (FP) PO SCH (22:26)
[2017-11-03] MEDS ORDERED: traMADol HCL 50 MG TABLET PO ONE ×2 (03:00→17:45)
[2017-11-03 08:08] LABS: SERUM IRON SATURATION 23 % (15-55); TOTAL IRON BINDING CAPACITY 146 ug/dL (250-450); UIBC 113 ug/dL (118-369)
[2017-11-03] MEDS ORDERED: PARoxetine HCL 10 MG TABLET (FP) ONE (09:07)
--- NOTE | 2017-11-03 10:02 | PN ---
Progress Note (short form) - Note Progress Note: Pt seen and examined. Left knee feels much better. She is able to ambulate. ROM is better. No sig pain. Left knee looks fine. No erythema, no swelling, non tender to palpation. Good ROM Good strength throughout LLE. Imp Left knee is s/p L TKR, looks fine. Rec Can DC from an ortho pov.
--- NOTE | 2017-11-03 10:19 | PN ---
Progress Note, [facility] [employer] - Note Progress Note: Selected Entries 11/02/17 11/02/17 11/02/17 01:48 05:58 09:45 Breakfast Lunch Supper Temperature 98.8 F 98.6 F 98.6 F 11/02/17 11/02/17 11/02/17 11:37 14:31 18:00 Breakfast 75% Lunch 50% Supper Temperature 99.1 F 98.8 F 11/02/17 11/02/17 11/03/17 18:45 21:00 10:02 Breakfast 100% Lunch Supper 75% Temperature 98.5 F Laboratory Tests 11/02/17 08:00 WBC 7.5 Pt with harsh cough, reporting sore throat. She reports brief cough after she drinks, observed today after drinking juice. MBS was (-) for aspiration but risk was noted. She is having meals in bed. Afebrile. WBC ok. REC: evaluate chest/ r/o congestion/CXR? OOB for meals if possible Downgrade to nectar thick? based on pulmonary findings
[2017-11-03] MEDS: ASPIRIN 325 MG TABLET PO SCH (10:21)
[2017-11-03] MEDS: CALCIUM ACETATE 667 MG CAPSULE (FP) PO SCH ×3 (10:21→17:28)
[2017-11-03] MEDS: SENNOSIDES/DOCUSATE COMBO (SENNA PLUS) TABLET (UD) PO SCH ×2 (10:21→22:00)
[2017-11-03] MEDS: PANTOPRAZOLE 40 MG TABLET (FP) PO SCH (10:22)
[2017-11-03] MEDS: PARoxetine HCL 20 MG TABLET (FP) PO SCH (10:22)
[2017-11-03] MEDS: MULTIVITAMINS (DAILY MVI) TABLET (FP) PO SCH (10:22)
[2017-11-03] MEDS: BRIMONIDINE TARTRATE OU SCH ×2 (10:23→22:00)
[2017-11-03] MEDS: [UNRECOGNIZED DRUG - OTHER] OU SCH ×2 (10:23→22:00)
[2017-11-03] MEDS: [UNRECOGNIZED DRUG - OTHER] OU SCH ×2 (10:23→22:00)
[2017-11-03] MEDS: TIMOLOL OU SCH ×2 (10:23→22:00)
[2017-11-03] MEDS: CINACALCET HCL 30 MG TAB (FP) PO SCH (10:23)
--- NOTE | 2017-11-03 10:34 | PN ---
Progress Note, Physician History of Present Illness: Left sided facial and arm weakness improving, likely new R subcortical vs R MCA stroke, telemetry shows PAC without PAF thus far, tolerating diet. - Current Medication List Current Medications: Active Medications Al Hydroxide/Mg Hydroxide (Mylanta Oral Suspension -) 30 ml PO Q4H PRN PRN Reason: DYSPEPSIA Aspirin (Asa -) 325 mg PO DAILY@0800 [facility] Last Admin: 11/03/17 10:21 Dose: 325 mg Atorvastatin Calcium (Lipitor -) 40 mg PO [facility] Last Admin: 11/02/17 22:25 Dose: 40 mg Calcium Acetate (Phoslo -) 1,334 mg PO TIDCM [facility] Last Admin: 11/03/17 10:21 Dose: 1,334 mg Cinacalcet (Sensipar -) 60 mg PO DAILY [facility] Last Admin: 11/03/17 10:23 Dose: 60 mg Insulin Aspart (Novolog Vial Sliding Scale -) 1 vial SQ [facility]; Protocol Last Admin: 11/02/17 22:25 Dose: Not Given Levothyroxine Sodium (Synthroid -) 50 mcg PO DAILY@0700 [facility] Last Admin: 11/02/17 06:40 Dose: 50 mcg Metoprolol Succinate (Toprol Xl -) 25 mg PO [facility] Last Admin: 11/02/17 22:26 Dose: Not Given Multivitamins/Minerals/Vitamin C (Tab-A-Vit -) 1 tab PO DAILY [facility] Last Admin: 11/03/17 10:22 Dose: 1 tab Ptnt's Own Med( Brimonidine Tartrate /Timolol [Combigan 0 .2%-0.5% 1 drop OU BID [facility] Last Admin: 11/03/17 10:23 Dose: 1 drop [facility]'s Own Med ( Bimatoprost [Lumigan ] 1 Drop) 1 drop OU BID [facility] Last Admin: 11/03/17 10:23 Dose: 1 drop Ondansetron HCl (Zofran Injection) 4 mg IVPUSH Q6H PRN PRN Reason: NAUSEA AND/OR VOMITING Pantoprazole Sodium (Protonix -) 40 mg PO DAILY [facility] Last Admin: 11/03/17 10:22 Dose: 40 mg Paroxetine HCl (Paxil -) 20 mg PO DAILY [facility] Last Admin: 11/03/17 10:22 Dose: 20 mg Senna/Docusate Sodium (Pericolace -) 2 tablet PO BID LEE Last Admin: 11/03/17 10:21 Dose: 2 tablet Tramadol HCl (Ultram -) 50 mg PO ONCE ONE Stop: 11/03/17 03:01 - Objective Vital Signs: Vital Signs Temperature 98.5 F 11/02/17 21:00 Pulse Rate 58 L 11/02/17 21:00 Respiratory Rate 18 11/02/17 21:00 Blood Pressure 130/77 11/02/17 21:00 O2 Sat by Pulse Oximetry (%) 97 11/02/17 21:00 Constitutional: Yes: No Distress, Calm Neck: Yes: Supple Cardiovascular: Yes: Regular Rate and Rhythm Respiratory: Yes: Regular, Cough, Diminished Gastrointestinal: Yes: Normal Bowel Sounds, Soft, Abdomen, Obese Edema: No Labs: CBC, BMP 11/02/17 08:00 11/02/17 08:00 - ....Imaging EKG: Report Reviewed (Tele: SR w/ PAC) Problem List - Problems (1) End stage renal disease Code(s): N18.6 - END STAGE RENAL DISEASE (2) Premature atrial contraction Code(s): I49.1 - ATRIAL PREMATURE DEPOLARIZATION (3) CVA (cerebral vascular accident) Code(s): I63.9 - CEREBRAL INFARCTION, UNSPECIFIED Qualifiers: CVA mechanism: embolism Laterality of affected vessel: bilateral (4) History of knee replacement procedure of left knee Code(s): Z96.652 - PRESENCE OF LEFT ARTIFICIAL KNEE JOINT (5) Hypertension Code(s): I10 - ESSENTIAL (PRIMARY) HYPERTENSION Qualifiers: Hypertension type: essential hypertension Qualified Code(s): I10 - Essential (primary) hypertension (6) Hypothyroidism Code(s): E03.9 - HYPOTHYROIDISM, UNSPECIFIED Qualifiers: Hypothyroidism type: unspecified Qualified Code(s): E03.9 - Hypothyroidism , unspecified (7) Anemia Code(s): D64.9 - ANEMIA, UNSPECIFIED Qualifiers: Anemia type: due to chronic kidney disease Chronic kidney disease stage: on chronic dialysis Qualified Code(s): N18.6 - End stage renal disease; D63.1 - Anemia in chronic kidney disease; Z99.2 - Dependence on renal dialysis (8) Diastolic dysfunction Code(s): I51.9 - HEART DISEASE, UNSPECIFIED Assessment/Plan Echo 11/01/2017 Normal LV and RV size and fxn, mod LAE, mild MR, AR, tr TR, IA 1. Acute stroke with evidence of multiple embolic infarcts on MRI of the brain 2. Premature atrial contractions without paroxysmal atrial fibrillation thus far 3. Diastolic dysfunction 4. Hypertensive cardiovascular disease 5. DM 6. Hypercholestrolemia 7. Hypothyroidism 8. Carotid stenosis 9. ESRD on HD 10. DJD post recent left knee arthroplasty, prior history of right knee arthroplasty 11. Anemia of renal disease 12. Glaucoma with right eye blindness PLAN: 1. Continue Toprol XL 25 qhs 2. Resume Diovan 40 qd 3. Continue Lipitor 40 qhs 4. Continue ASA 325 qd for now, pending further evaluation for PAF 5. Patient may require MOLLY for further evaluation of source of embolism 6. Recommend outpatient extended monitor or ILR for evaluation of possible PAF as culprit to the above noted embolic events on brain MRI, check EKG 7. PT->SNF
[2017-11-03] MEDS: INSULIN SLIDING SCALE (NOVOLOG) 1 VIAL SQ SCH ×3 (11:27→21:40)
--- NOTE | 2017-11-03 13:24 | PN ---
Teaching Attending Note Name of Resident: Campbell Elam ATTENDING PHYSICIAN STATEMENT I saw and evaluated the patient. I reviewed the resident's note and discussed the case with the resident. I agree with the resident's findings and plan as documented. SUBJECTIVE:continues to have LLE pain and weakness. dneies Cp, SOB, fever, chills, N/V/C/D OBJECTIVE: Last Vital Signs Temp Pulse Resp BP Pulse Ox 98.4 F 66 18 143/74 97 11/03/17 10:37 11/03/17 10:37 11/03/17 10:37 11/03/17 10:37 11/03/17 09:00 general NAD cv S1 S2 RRR neuro fluid speech. L facial droop. sensation and motor intact within the CN. strength 5/5 B/L UE. 2/5 B/L LE. sensation grossly intact. ASSESSMENT AND PLAN: 72yo F with PMH ESRD on HD, HTN, angina, DM and OA presented for elective TKR 10/25 and course was complicated by post-op hypotension, acute blood loss anemia and CVA. 1. Acute/subacute right frontal lobe CVA, Multiple lacunar infarcts in bilateral cerebellum/right splenium/right occipital/parietal lobe, likely embolic CVA- slight facial droop. no afib on the monitor only PAC noted. echo reviewed. dilated LA. will need arrythmia monitor and MOLLY as outpatient. cont high intensity statin. full dose asa then reduce to 81mg after 4 weeks. will need both cardio and neuro follow up as outpatient. no events noted on monitor 2. Hypotension- orthostatics negative. been normotensive past 24H. if remains stable would re-start ARB at lower dose 3. acute blood loss anemia- s/p 1 unit PRBC. Hgb been low but stable. FOBT negative. iron studies showing anemia of chronic disease. no indication for txn at this time 4. Osteoarthritis s/p elective TKR 10/25/2017- further management per ortho. will need full dose asa for 4 weeks. PT on discharge 5. NIDDM- hold oral agents. cont BGM, iss 6. ESRD On HD- cont per normal schedule. on phoslo/cinacelet 7. hypothyroid- on LT4 8. DVT ppx- HERIBERTO/hep sq 9. medically optimized for transfer to [facility]. thank you for this consultative opportunity. please call back if needed
[2017-11-03 14:02] LABS: BASO % 0.7 % (0-2.0); EOS % 3.5 % (0-4.5); HEMATOCRIT 23.7 % (32.4-45.2); HEMOGLOBIN 7.9 GM/dL (10.7-15.3); LYMPH % 23.6 % (8-40); MCHC 33.4 g/dl (32.0-36.0); MEAN CELL VOLUME 98.7 fl (80-96); MEAN PLT VOLUME 7.8 fl (7.5-11.1); NEUT % 62.2 % (42.8-82.8); PLATELET COUNT 245 K/MM3 (134-434); RDW 15.3 % (11.6-15.6); WHITE BLOOD COUNT 8.1 K/mm3 (4.0-10.0)
[2017-11-03 14:20] LABS: ANION GAP 10 (8-16); BLOOD UREA NITROGEN 37 mg/dL (7-18); CHLORIDE 97 mmol/L (98-107); CO2 31 mmol/L (21-32); GLUCOSE,RANDOM 129 mg/dL (74-106); POTASSIUM 4.1 mmol/L (3.5-5.1); SODIUM 138 mmol/L (136-145)
[2017-11-03] MEDS ORDERED: EPOETIN ALFA 20,000 UNIT/1 ML VIAL IVPUSH ONE (15:00)
--- NOTE | 2017-11-03 15:33 | EKG ---
Test Reason : Blood Pressure : / mmHG Vent. Rate : 057 BPM Atrial Rate : 057 BPM P-R Int : 110 ms QRS Dur : 090 ms QT Int : 490 ms P-R-T Axes : -76 -06 -07 degrees QTc Int : 476 ms UNUSUAL P AXIS AND SHORT MD, PROBABLE JUNCTIONAL RHYTHM WITH PREMATURE ATRIAL COMPLEXES MINIMAL VOLTAGE CRITERIA FOR LVH, MAY BE NORMAL VARIANT ABNORMAL ECG WHEN COMPARED WITH ECG OF 02-NOV-2017 11:47, JUNCTIONAL RHYTHM HAS REPLACED SINUS RHYTHM Confirmed by FACUNDO FRAGA MD ([id number]) on 11/03/2017 3:33:00 PM Referred By: Alex Young Confirmed By:FACUNDO FRAGA MD
--- NOTE | 2017-11-03 17:29 | PN ---
Physical Exam: SUBJECTIVE: Patient seen and examined at bedside. No complaints at this time. OBJECTIVE: Vital Signs Period Temp Pulse Resp BP Sys/Palacios Pulse Ox Last 24 Hr 97.9 F-98.8 F 44-75 18-18 73-143/41-84 97-97 Gen: Lying in bed, NAD HEENT: NCAT, EOMI, no droop appreciated Neck: supple, no jvd, no bruits Cardiac: RRR, s1s2, 2/6 systolic crescendo-decrescendo murmur loudest at RUSB ( soft S1 at RUSB) Pulm: CTA b/l Abd: soft, nontender, no guarding Ext: 2+ pulses, no edema. L knee wound dressing cdi, L forearm Neuro: Unchanged. 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 Sensation equal and intact throughout Laboratory Results - last 24 hr 10/30/17 11/02/17 11/02/17 14:50 08:00 17:13 WBC RBC Hgb Hct MCV MCH MCHC RDW Plt Count MPV Absolute Neuts (auto) Neutrophils % Lymphocytes % Monocytes % Eosinophils % Basophils % Nucleated RBC % Sodium Potassium Chloride Carbon Dioxide Anion Gap BUN Creatinine POC Glucometer 117 Random Glucose Calcium Iron 33 TIBC 146 L Iron Saturation 23 Blood Type B POSITIVE Antibody Screen Negative Crossmatch See Detail 11/02/17 11/03/17 11/03/17 22:21 05:27 13:00 WBC 8.1 RBC 2.40 L Hgb 7.9 L D Hct 23.7 L MCV 98.7 H MCH 33.0 MCHC 33.4 RDW 15.3 Plt Count 245 MPV 7.8 Absolute Neuts (auto) 5.1 Neutrophils % 62.2 Lymphocytes % 23.6 Monocytes % 10.0 Eosinophils % 3.5 Basophils % 0.7 Nucleated RBC % 0 Sodium Potassium Chloride Carbon Dioxide Anion Gap BUN Creatinine POC Glucometer 97 114 Random Glucose Calcium Iron TIBC Iron Saturation Blood Type Antibody Screen Crossmatch 11/03/17 13:00 WBC RBC Hgb Hct MCV MCH MCHC RDW Plt Count MPV Absolute Neuts (auto) Neutrophils % Lymphocytes % Monocytes % Eosinophils % Basophils % Nucleated RBC % Sodium 138 Potassium 4.1 Chloride 97 L Carbon Dioxide 31 Anion Gap 10 BUN 37 H Creatinine 9.0 H* POC Glucometer Random Glucose 129 H Calcium 9.0 Iron TIBC Iron Saturation Blood Type Antibody Screen Crossmatch Active Medications Generic Name Dose Route Start Last Admin Trade Name Reji PRN Reason Stop Dose Admin Al Hydroxide/Mg Hydroxide 30 ml 11/01/17 07:46 Mylanta Oral Suspension - PO Q4H PRN DYSPEPSIA Aspirin 325 mg 11/01/17 08:00 11/03/17 10:21 Asa - PO 325 mg DAILY@0800 LEE Administration Atorvastatin Calcium 40 mg 11/01/17 22:00 11/02/17 22:25 Lipitor - PO 40 mg HS [facility] Administration Calcium Acetate 1,334 mg 11/01/17 08:00 11/03/17 12:16 Phoslo - PO 1,334 mg TIDCM [facility] Administration Cinacalcet 60 mg 11/01/17 10:00 11/03/17 10:23 Sensipar - PO 60 mg DAILY LEE Administration Insulin Aspart 1 vial 11/01/17 11:00 11/02/17 22:25 Novolog Vial Sliding Scale - SQ Not Given ACHS [facility] Protocol Levothyroxine Sodium 50 mcg 11/02/17 07:00 11/02/17 06:40 Synthroid - PO 50 mcg DAILY@0700 [facility] Administration Metoprolol Succinate 25 mg 11/01/17 22:00 11/02/17 22:26 Toprol Xl - PO Not Given HS [facility] Multivitamins/Minerals/Vitamin C 1 tab 11/01/17 10:00 11/03/17 10:22 Tab-A-Vit - PO 1 tab DAILY LEE Administration Ptnt's Own Med( 1 drop 11/01/17 22:00 11/03/17 10:23 Brimonidine Tartrate OU 1 drop /Timolol [Combigan 0 BID LEE Administration .2%-0.5% [facility] Own [facility] ( 1 drop 11/01/17 22:00 11/03/17 10:23 Bimatoprost [Lumigan OU 1 drop ] 1 Drop) BID LEE Administration Ondansetron HCl 4 mg 11/01/17 07:46 Zofran Injection IVPUSH Q6H PRN NAUSEA AND/OR VOMITING Pantoprazole Sodium 40 mg 11/01/17 10:00 11/03/17 10:22 Protonix - PO 40 mg DAILY LEE Administration Paroxetine HCl 20 mg 11/01/17 10:00 11/03/17 10:22 Paxil - PO 20 mg DAILY LEE Administration Senna/Docusate Sodium 2 tablet 11/01/17 10:00 11/03/17 10:21 Pericolace - PO 2 tablet BID LEE Administration Tramadol HCl 50 mg 11/03/17 03:00 Ultram - PO 11/03/17 03:01 ONCE ONE ASSESSMENT/PLAN: Patient is a 72 year old female with significant past medical hx of DM, HTN, ESRD on HD, OA, Angina came in to [facility] for an elective Left knee replacement on 10/25/2017 found to have acute/subacute stroke. # Acute vs Subacute stroke -initial NIH stroke scale-4 -c/o facial droop, left sided weakness -MRI showed multiple bilateral cerebellar lacunar infarcts as well as a lacunar infarct in the right splenium, right occipital and right parietal lobe. -Monitoring -Patient is not a candidate for a tPA (out of window and patient is anemic with recent h/o BT) -per neuro cont Asa, statin. No MRA -Speech and swallow: MBS -> dysphagia chopped -EKG, no afib -ECHO (bubble study): E/A reversal, dilated LA -Carotid doppler neg -duplex of lower ext ordered -Cardio consulted: no afib documented, therefore, no AC. May need MOLLY &/or event monitor as an out pt -Seen by speech and swallow -MBS # Hypertension -Diovan with holding parameters -Held metoprolol -had been hypotensive. Orthostatics negative #End-stage renal disease on HD TTS -Last HD was done on Sat -HD today -strict intake and output #normocytic anemia ? Fe defic -FOBT negative -Fe studies pending #Diabetes Mellitus -Januvia -BGM ACHS -ISS # Hypothyroidism -synthroid # FEN -NS -lytes WNL -NPO except meds # Prophylaxis -scds # Code Status: Full Code Dispo: stable for transfer Visit type - Emergency Visit Emergency Visit: No - New Patient This patient is new to me today: No - Critical Care Critical Care patient: No - Discharge Referral Referred to [facility] No
[2017-11-03] MEDS: HEPARIN NA (PORCINE) 5,000 UNITS/ML 1ML VIAL SQ SCH (22:00)
[2017-11-03] MEDS: metoPROLOL SUCCINATE 25 MG TAB.SR.24H (FP) PO SCH (22:00)
[2017-11-03] MEDS: ATORVASTATIN CA 40 MG TABLET (FP) PO SCH (22:00)
[2017-11-04] MEDS: LEVOTHYROXINE NA 50 MCG TABLET (FP) PO SCH (06:21)
[2017-11-04] MEDS: INSULIN SLIDING SCALE (NOVOLOG) 1 VIAL SQ SCH (06:22)
[2017-11-04 08:24] LABS: BASO % 0.7 % (0-2.0); HEMATOCRIT 24.9 % (32.4-45.2); HEMOGLOBIN 8.2 GM/dL (10.7-15.3); LYMPH % 17.9 % (8-40); MCHC 33.1 g/dl (32.0-36.0); MEAN CELL VOLUME 99.6 fl (80-96); MEAN PLT VOLUME 7.8 fl (7.5-11.1); NEUT % 69.4 % (42.8-82.8); PLATELET COUNT 245 K/MM3 (134-434); RDW 15.7 % (11.6-15.6); WHITE BLOOD COUNT 8.7 K/mm3 (4.0-10.0)
[2017-11-04 09:00] LABS: CHLORIDE 98 mmol/L (98-107); POTASSIUM 4.1 mmol/L (3.5-5.1); SODIUM 139 mmol/L (136-145)
[2017-11-04] MEDS ORDERED: PARoxetine HCL 10 MG TABLET (FP) ONE (09:06)
[2017-11-04 09:11] LABS: ANION GAP 10 (8-16); BLOOD UREA NITROGEN 21 mg/dL (7-18); CALCIUM 8.5 mg/dL (8.5-10.1); CO2 31 mmol/L (21-32); GLUCOSE,RANDOM 121 mg/dL (74-106)
[2017-11-04 09:19] VITALS: BP 138/64; PULSE 67; TEMP 98.8
[2017-11-04] MEDS: MULTIVITAMINS (DAILY MVI) TABLET (FP) PO SCH (09:21)
[2017-11-04] MEDS: CINACALCET HCL 30 MG TAB (FP) PO SCH (09:21)
[2017-11-04] MEDS: PARoxetine HCL 20 MG TABLET (FP) PO SCH (09:22)
[2017-11-04] MEDS: CALCIUM ACETATE 667 MG CAPSULE (FP) PO SCH (09:22)
[2017-11-04] MEDS: [UNRECOGNIZED DRUG - OTHER] OU SCH (09:22)
[2017-11-04] MEDS: PANTOPRAZOLE 40 MG TABLET (FP) PO SCH (09:22)
[2017-11-04] MEDS: SENNOSIDES/DOCUSATE COMBO (SENNA PLUS) TABLET (UD) PO SCH (09:22)
[2017-11-04] MEDS: ASPIRIN 325 MG TABLET PO SCH (09:22)
[2017-11-04] MEDS: HEPARIN NA (PORCINE) 5,000 UNITS/ML 1ML VIAL SQ SCH (09:23)
[2017-11-04] MEDS: TIMOLOL OU SCH (09:23)
[2017-11-04] MEDS: BRIMONIDINE TARTRATE OU SCH (09:23)
[2017-11-04] MEDS: [UNRECOGNIZED DRUG - OTHER] OU SCH (09:23)
--- NOTE | 2017-11-04 09:45 | DS ---
Physical Examination Vital Signs: Vital Signs Temperature 98.8 F 11/04/17 09:18 Pulse Rate 67 11/04/17 09:18 Respiratory Rate 20 11/04/17 09:18 Blood Pressure 138/64 11/04/17 09:18 O2 Sat by Pulse Oximetry (%) 97 11/03/17 22:00 Labs: CBC, BMP 11/04/17 06:30 11/04/17 06:30 Discharge Summary Reason For Visit: OSTEOARTHRITIS Current Active Problems Anemia (Acute) CVA (cerebral vascular accident) (Acute) Diastolic dysfunction (Acute) End stage renal disease (Acute) History of knee replacement procedure of left knee (Acute) Hypertension (Acute) Hypothyroidism (Acute) Premature atrial contraction (Acute) Hospital Course: admitted for left rodney tkr, developed CVA during hospital stay, neuro and cardio consulted and followed, currently stable for d/c to rehab as per cardio and neuro, needs to follow-up with cardiology and neurology as outpt. Condition: Good - Instructions Diet, Activity, Other Instructions: Instruction for medical management: 1. Continue taking Toprol XL 25 daily at bedtime, Diovan 40mg daily, Lipitor 40mg daily at bedtime, aspirin 325mg daily 2. Follow up with Dr. Errol Spears (steam shovel operating engineer) as outpatient for further evaluation of your atrial fibrillation 3. Follow up with Dr. Baum (neurologist) as outpatient in a month Post-op Instructions-Total Hip Replacement Call the office for a follow-up appointment in 1 week - [phone] Aspirin 325mg daily for 6 weeks. Pain medication was sent into your pharmacy. Apply Graduated Compression Stockings (TEDs) to both lower extremities- remove daily for hygiene ONLY Apply Sequential Compression Device (SCDs) to both Lower extremities remove for PT and hygiene ONLY Apply cold packs to affected area for 15 minutes every 2 hours. Physical Therapist will come to your home for the first 5 days. You will be set up with outpatient PT at your first post-operative visit. Patient may ambulate as tolerated-encourage self care (at least every 2-3 hours while awake) with walker or cane Maintain Aquacel (waterproof) dressing to operative wound (will be removed by surgeon at first office visit) Shower with Aquacel dressing in place-if Aquacel integrity compromised, remove and apply dry sterile dressing and notify Orthopedist. DO NOT SHOWER unless Orthopedists approves without Aquacel dressing CONTACT THE OFFICE FOR ANY CHANGE IN YOUR CONDITION (for example-fever greater than 102 degrees, excessive bleeding from operative site, purulent drainage, severe swelling or pain) GO TO THE EMERGENCY ROOM IF THERE IS A MEDICAL EMERGENCY Hip Precautions: * Keep a rolled towel under affected heel while in bed or chair (to keep knee in extension) * Dependent upon approach: * Posterior - do not cross legs; do not sit on low chairs or toilets. * If you have any questions, please do not hesitate to call the office - . You need to follow up with your steam shovel operating engineer, Dr. Spears. You may need further testing in the out patient setting. Referrals: Holly Baum MD [Staff Physician] - Alex Young MD [Staff Physician] - 1 Week Abhijit Spears MD [Staff Physician] - 1 Week Disposition: [facility]NS/HOME HEALTH CARE - Home Medications Comprehensive Discharge Medication List: Ambulatory Orders Brinzolamide/Brimonidine Tart [Simbrinza 1%-0.2% Eye Drops] 8 ml OD DAILY Calcium Acetate [Phoslo -] 667 mg PO TIDCM 10/13/17 Cinacalcet HCl [Sensipar] 60 mg PO DAILY 10/13/17 Levothyroxine [Synthroid -] 50 mcg PO DAILY 10/13/17 Metoprolol Succinate [Toprol Xl] 50 mg PO DAILY 10/13/17 Simvastatin [Zocor -] 40 mg PO HS 10/13/17 Sitagliptin Phosphate [Januvia] 25 mg PO DAILY 10/13/17 Telmisartan [Micardis] 40 mg PO DAILY 10/13/17 Aspirin [ASA -] 325 mg PO DAILY@0800 tablet 10/25/17 Oxycodone HCl/Acetaminophen [Oxycodone-Acetaminophen 5-325] 1 - 2 each PO Q6H # 50 tablet MDD 6 10/25/17 Sennosides/Docusate Sodium [Pericolace -] 2 tablet PO BID #14 tablet 10/28/17 Brimonidine Tartrate/Timolol [Combigan Eye Drops] 1 drop OU BID 11/01/17 Lumigan 1 drop AD HS 11/01/17
[2017-11-04] MEDS ORDERED: VALSARTAN 40 MG TABLET (FP) PO SCH (10:00)
--- NOTE | 2017-11-05 08:37 | EKG ---
Test Reason : Blood Pressure : / mmHG Vent. Rate : 099 BPM Atrial Rate : 099 BPM P-R Int : 202 ms QRS Dur : 084 ms QT Int : 360 ms P-R-T Axes : 049 -04 190 degrees QTc Int : 462 ms NORMAL SINUS RHYTHM LEFT VENTRICULAR HYPERTROPHY WITH REPOLARIZATION ABNORMALITY ABNORMAL ECG WHEN COMPARED WITH ECG OF 04-NOV-2010 11:15, NON-SPECIFIC CHANGE IN ST SEGMENT IN LATERAL LEADS NONSPECIFIC T WAVE ABNORMALITY NOW EVIDENT IN INFERIOR LEADS Confirmed by WARREN ALONZO, GINNY ([id number]) on 11/05/2017 8:36:41 AM Referred By: Alex Young Confirmed By:GINNY KELLEY MD
== END 2017-11-04 10:01 | DRG 469 ==
LOC: FM/S 09:11 → J5S 10-27 13:30 → J4S 10-31 20:01
PROVIDERS: ADMIT Orthopaedic Surgery; ATTEND Orthopaedic Surgery
PROC: 8E0YXCZ Robotic Assisted Procedure of Lower Extremity (ICD-10-PCS; 2017-10-25)
PROC: 0SRD069 Replacement of Left Knee Joint with Oxidized Zirconium on Polyethylene Synthetic Substitute, Cemented, Open Approach (ICD-10-PCS; principal; 2017-10-25 11:00)
PROC: 5A1D70Z Performance of Urinary Filtration, Intermittent, Less than 6 Hours Per Day (ICD-10-PCS; 2017-10-29)
PROC: 30233N1 Transfusion of Nonautologous Red Blood Cells into Peripheral Vein, Percutaneous Approach (ICD-10-PCS; 2017-10-30)
DX: M17.12 Unilateral primary osteoarthritis, left knee (principal); N18.6 End stage renal disease; I63.9 Cerebral infarction, unspecified; I12.0 Hypertensive chronic kidney disease with stage 5 chronic kidney disease or end stage renal disease; G81.94 Hemiplegia, unspecified affecting left nondominant side; D62 Acute posthemorrhagic anemia; R29.704 NIHSS score 4; R47.1 Dysarthria and anarthria; E11.22 Type 2 diabetes mellitus with diabetic chronic kidney disease; I95.9 Hypotension, unspecified; E03.9 Hypothyroidism, unspecified; Z79.84 Long term (current) use of oral hypoglycemic drugs; Z99.2 Dependence on renal dialysis; Z87.891 Personal history of nicotine dependence; Z96.651 Presence of right artificial knee joint; H40.9 Unspecified glaucoma; H54.61 Unqualified visual loss, right eye, normal vision left eye; I65.29 Occlusion and stenosis of unspecified carotid artery; I25.10 Atherosclerotic heart disease of native coronary artery without angina pectoris; D63.1 Anemia in chronic kidney disease; I49.1 Atrial premature depolarization
CPT/HCPCS: 36415; 36430; 70551-TC; 71046-TC-FY; 73560-TC-LT-FY; 74230-TC-FY; 80048; 80053; 80061; 82272; 82728; 82962; 83540; 83550; 83721; 83735; 84100; 84132; 85025; 85027; 86704; 86706; 86708; 86850; 86900; 86901; 86922; 87340; 87522; 88304-TC; 88311-TC; 92611-GN; 93005; 93010; 93306-TC; 93880-TC; 93970-TC; 94760; 97116-GP; 97162-GP; J0885; J1644; J1756; J7030; P9038; P9058